=== PATIENT | female | born 1950 | race African-American/Black ===

== ENCOUNTER 2018-08-27 17:09 | Observation (INO) | payer OTHER ==
--- OUTSIDE RECORDS SUMMARY | 2018-08-27 17:11 | XMS REPORT ---
:1950 [facility] Team Providers Name Role Phone Marilin Randolph Provider Role Unavailable Allergies, Adverse Reactions, Alerts Substance Reaction Event Type MORPHINE Info Not Available Drug Allergy Lisinopril Info Not Available Drug Allergy Dilaudid Info Not Available Drug Allergy Problems Problem Type Condition Code Onset Dates Condition Status Problem Uncontrolled type 2 diabetes E11.65 Active mellitus without complication, without long-term current use of insulin Problem Hyperlipidemia, unspecified E78.5 Active hyperlipidemia type Problem Numbness R20.0 Active Problem Vitamin D deficiency E55.9 Active Problem Peripheral neuritis G62.9 Active Problem Abnormal CBC R79.89 Active Problem Low back pain M54.5 Active Problem Anemia, unspecified type D64.9 Active Problem Seasonal allergies J30.2 Active Problem Pain in unspecified hip M25.559 Active Assessment Hyperlipidemia, unspecified E78.5 Active hyperlipidemia type Assessment Uncontrolled type 2 diabetes E11.65 Active mellitus without complication, without long-term current use of insulin Assessment Chronic pain syndrome G89.4 Active Assessment Vitamin D deficiency E55.9 Active Problem Chronic pain syndrome G89.4 Active Assessment Abnormal CBC R79.89 Active Problem Muscle cramps R25.2 Active Assessment Hypertension, unspecified type I10 Active Problem Hypertension, unspecified type I10 Active Medications Medication Code Code Instructions Start End Status Dosage System Date Date Vitamin D [facility] 90040044851 2000 UNIT Active 2 tablets Orally Once (4,000 daily IU--OTC) Coreg ND 22032755077 25 mg Orally Nov 12, Active 1 tablet Twice daily 2017 Gabapentin ND 12777620540 300 MG Orally Active 1 capsule Twice a day before bedtime Amlodipine ND 29999076827 10 MG Orally b 16, Active 1 tablet Besylate Once a day 2017 Farxiga ND 00426497671 5mg Orally Once February 15May 16, Active 1 tablet in daily 2017 2017 morning for diabetes Lipitor ND 37783970961 20 mg Orally Oct 16, Active 1 tablet in Once daily 2018 evening Januvia [facility] 74058882307 100 mg Orally Nov 12, Active 1 tablet Once daily 2017 Metformin HCl [facility] 21867314300 1000 MG Orally Nov 12, Active 1 tablet Twice a day 2017 Victoza [facility] 05320669264 18 MG/3ML Active not defined Subcutaneous Meloxicam [facility] 76091149483 7.5 MG Orally Active 1 tablet Once a day Vitamin D3 [facility] 07914134704 5000 UNIT May 11, Active 1 capsule Orally Once a 2017 (otc) day Pennsaid [facility] 07021135157 2 % Transdermal Active 2 applications Twice a day to affected area Lisinopril [facility] 24284166193 20 MG Orally Active 1 tablet Once a day Results No Known Results Summary Purpose [employer]Clinical[employer] Submission
--- OUTSIDE RECORDS SUMMARY | 2018-08-27 17:12 | XMS REPORT ---
:1950 Author Organization eClinical[employer] Care Team Providers Name Role Phone Marilin Randolph Provider Role Unavailable Allergies No Known Allergies Problems Problem Type Condition Code Onset Dates [...] Problem Pain in unspecified hip M25.559 Active Problem Chronic pain syndrome G89.4 Active Problem Muscle cramps R25.2 Active Problem Hypertension, unspecified type I10 Active Medications No Known Medications Results No Known Results Summary Purpose [employer] Submission
--- OUTSIDE RECORDS SUMMARY | 2018-08-27 17:12 | XMS REPORT ---
[...] Medications Results No Known Results Summary Purpose [employer] Submission
--- OUTSIDE RECORDS SUMMARY | 2018-08-27 17:12 | XMS REPORT ---
[...] unspecified type I10 Active Medications Medication Code System Code Instructions Start End Date Status Dosage Date GlipiZIDE XL [facility] 11803313761 10 MG Orally May 16, Active 1 tablet Once a day (for 2018 diabetes) Results No Known Results Summary Purpose eClinicalWorks Submission
[2018-08-27 18:33] LABS: Absolute Lymphocytes (CBC) 1.5 K/uL (0.7-4.9); Absolute Monocytes 0.6 K/uL (0.1-1.3); Absolute Neutrophil 6.9 K/uL (1.8-8.0); Basophils % 0.6 % (0-1.3); Eosinophils % 2.1 % (0-4.4); Hematocrit 35.9 % (36.0-45.0); Lymphocytes % 15.8 % (15.3-44.8); MCV 79.3 fL (80-100); MPV 8.5 fL (7.6-11.3); Monocytes % 6.7 % (3.3-12.3); RBC Red Blood Cell Count 4.53 M/uL (3.86-4.86)
[2018-08-27 18:41] LABS: Protime INR 1.19
[2018-08-27 18:58] LABS: BUN Blood Urea Nitrogen 10 mg/dL (7-18); Bicarbonate 31 mmol/L (21-32); Glucose Level 88 mg/dL (74-106); NT PRO-BNP 454 pg/mL (<125); Potassium 3.9 mmol/L (3.5-5.1); Sodium Level 141 mmol/L (136-145); Troponin (Emerg Dept Use Only) < 0.02 ng/mL (0.0-0.045)
[2018-08-27 19:18] LABS: Urine Blood TRACE (NEG); Urine Glucose NEGATIVE (NEG); Urine Protein NEGATIVE (NEG); Urine pH 7.5 (5.0-7.0)
--- NOTE | 2018-08-27 19:53 | RAD REPORT ---
EXAM DESCRIPTION: RAD - Chest Single View - 08/27/2018 7:46 pm CLINICAL HISTORY: DYSPNEA Chest pain. COMPARISON: Chest Pa And Lat (2 Views) dated 08/25/2018; Chest Pa And Lat (2 Views) dated 06/01/2017; CHEST PA AND LAT 2 VIEW dated 09/05/2012 FINDINGS: Portable technique limits examination quality. The lungs are grossly clear. The heart is normal in size. No displaced fractures. IMPRESSION: No acute intrathoracic process suspected.
[2018-08-27] MEDS ORDERED: FENTANYL CITR 100 MCG/2 ML ONE (20:11)
--- NOTE | 2018-08-27 20:20 | ER ---
Nurse's Notes [facility] Name: Vesta Méndez Age: 67 yrs Sex: Female : 1950 Arrival Date: 08/27/2018 Time: 17:12 Bed 23 Private MD: Marilin Randolph Diagnosis: Unspecified atrial flutter-new onset;Chest pain, unspecified;Dyspnea, unspecified Presentation: 08/27 17:19 Presenting complaint: Patient states: Reports being treated by for asthma, sg Shortness of breath for about 4 weeks now, medication changes but no relief to the Shortness of breath that worsens with walking, started on a water pill as well for what he thought was swelling in my legs, reports feeling febrile. Transition of care: patient was not received from another setting of care. Onset of symptoms was August 27, 2018. Risk Assessment: Do you want to hurt yourself or someone else? Patient reports no desire to harm self or others. Initial Sepsis Screen: Does the patient meet any 2 criteria? RR > 20 per min. HR > 90 bpm. Does the patient have a suspected source of infection? No. Patient's initial sepsis screen is negative. Care prior to arrival: None. 17:19 Method Of Arrival: Ambulatory sg 17:19 Acuity: ARACELI 3 sg Triage Assessment: 18:26 General: Appears in no apparent distress. comfortable, well groomed, well developed, kr2 well nourished, Behavior is calm, cooperative, appropriate for age. Respiratory: Onset: The symptoms/episode began/occurred gradually, the patient has mild shortness of breath. Respiratory: Airway is patent Respiratory effort is even, unlabored, Respiratory pattern is regular, symmetrical, Breath sounds are clear bilaterally. Historical: - Allergies: 17:22 Morphine; sg 23:13 Dilaudid; kr2 - PMHx: 17:22 Hypertension; Diabetes - NIDDM; Asthma; sg - Immunization history:: Adult Immunizations up to date. - Social history:: Smoking status: Patient/guardian denies using tobacco. - Ebola Screening: : Patient negative for fever greater than or equal to 101.5 degrees Fahrenheit, and additional compatible Ebola Virus Disease symptoms Patient denies exposure to infectious person Patient denies travel to an Ebola-affected area in the 21 days before illness onset No symptoms or risks identified at this time. Screenin:00 Abuse screen: Denies threats or abuse. Denies injuries from another. Nutritional kr2 screening: No deficits noted. Tuberculosis screening: No symptoms or risk factors identified. Fall Risk None identified. Assessment: 18:00 General: Appears in no apparent distress. comfortable, well groomed, well developed, kr2 well nourished, Behavior is calm, cooperative, appropriate for age. Pain: Complains of pain in chest Pain does not radiate. Pain currently is 3 out of 10 on a pain scale. Quality of pain is described as pressure, sharp, Is continuous, Alleviated by rest, Aggravated by increased activity. Neuro: Level of Consciousness is awake, alert, obeys commands, Oriented to person, place, time, situation, Appropriate for age. Cardiovascular: Capillary refill < 3 seconds in bilateral fingers Patient's skin is warm and dry. Rhythm is atrial fibrillation. Respiratory: Reports shortness of breath on exertion cough that is Airway is patent Respiratory effort is even, unlabored, Respiratory pattern is regular, symmetrical, Breath sounds are clear bilaterally. GI: Abdomen is non-distended, obese. : Urine is clear. EENT: Oral mucosa is moist. Derm: Skin is intact, is healthy with good turgor, Skin is pink, warm \T\ dry. Musculoskeletal: Circulation, motion, and sensation intact. 19:00 Reassessment: Patient appears in no apparent distress at this time. Patient and/or kr2 family updated on plan of care and expected duration. Pain level reassessed. Patient is alert, oriented x 3, equal unlabored respirations, skin warm/dry/pink. 20:32 Reassessment: Patient appears in no apparent distress at this time. Patient and/or kr2 family updated on plan of care and expected duration. Pain level reassessed. Patient is alert, oriented x 3, equal unlabored respirations, skin warm/dry/pink. Patient denies pain at this time. Patient states feeling better. 21:30 Reassessment: Patient appears in no apparent distress at this time. Patient and/or kr2 family updated on plan of care and expected duration. Pain level reassessed. Patient is alert, oriented x 3, equal unlabored respirations, skin warm/dry/pink. Patient denies pain at this time. Patient states feeling better. 22:30 Reassessment: Patient appears in no apparent distress at this time. Patient and/or kr2 family updated on plan of care and expected duration. Pain level reassessed. Patient is alert, oriented x 3, equal unlabored respirations, skin warm/dry/pink. Patient denies pain at this time. Patient states feeling better. 23:14 Reassessment: Patient appears in no apparent distress at this time. Patient and/or kr2 family updated on plan of care and expected duration. Pain level reassessed. Patient is alert, oriented x 3, equal unlabored respirations, skin warm/dry/pink. Patient denies pain at this time. Patient states feeling better. Vital Signs: 17:20 BP 154 / 90; Pulse 106; Resp 21; Temp 98.1; Pulse Ox 97% on R/A; Pain 0/10; sg 18:25 BP 127 / 63; Pulse 83; Resp 17; Pulse Ox 97% on R/A; kr2 19:30 BP 110 / 76; Pulse 80; Resp 18; Pulse Ox 99% on R/A; kr2 20:31 BP 123 / 89; Pulse 72; Resp 18; Pulse Ox 99% on R/A; kr2 22:30 BP 128 / 88; Pulse 74; Resp 16; Pulse Ox 99% on R/A; kr2 ED Course: 17:12 Patient arrived in ED. sb2 17:12 Marilin Randolph MD is Private Physician. sb2 17:19 Arm band placed on. sg 17:20 Triage completed. sg 17:23 Geri Love FNP-C is [facility]. kb 17:23 Ernie Marinelli MD is Attending Physician. kb 17:40 Patient has correct armband on for positive identification. Placed in gown. Bed in low kr2 position. Call light in reach. Side rails up X 1. Adult w/ patient. cardiac monitor technician on. Pulse ox on. NIBP on. Door closed. Pillow given. Head of bed elevated. 18:00 EKG done, by ED staff, reviewed by Geri HOLT. Inserted saline lock: 20 kr2 gauge in right antecubital area, using aseptic technique. Blood collected. 18:22 Mable Beltran RN is Primary Nurse. kr2 19:42 X-ray completed. Portable x-ray completed in exam room. Patient tolerated procedure tm4 well. 20:19 Jennifer Ott MD is Hospitalizing Provider. kb 23:13 No provider procedures requiring assistance completed. Patient admitted, IV remains in kr2 place. Administered Medications: 20:06 Drug: fentaNYL (PF) 25 mcg Route: IVP; Site: right antecubital; jl3 20:32 Follow up: Response: No adverse reaction; Pain is decreased kr2 Outcome: 20:20 Decision to Hospitalize by Provider. kb 23:13 Admitted to Tele accompanied by nurse, family with patient, via wheelchair, room 430, kr2 with chart, Report called to FRANCK Rothman 23:13 Condition: stable 23:13 Instructed on the need for admit, Demonstrated understanding of instructions. 23:15 Patient left the ED. kr2 Signatures: Geri Love, BELL MAKER-C BELL MAKER-Ckb Surinder Bartlett, RN RN Iliana Moura 4 Rigoberto Ferraro RN RN jl3 Mable Beltran RN RN kr2 Tori Lancaster 2
--- NOTE | 2018-08-27 20:21 | EDPHYS ---
Physician Documentation [facility] Name: Vesta Méndez Age: 67 yrs Sex: Female : 1950 Arrival Date: 08/27/2018 Time: 17:12 Bed 23 Private MD: Marilin Randolph ED Physician Ernie Marinelli HPI: 08/27 18:03 This 67 yrs old Black Female presents to ER via Ambulatory with complaints of Shortness kb Of Breath. 18:03 The patient has shortness of breath at rest, and the patient has a history of asthma. kb Onset: The symptoms/episode began/occurred 4 week(s) ago. Duration: The symptoms are continuous, and are unchanged since they started. The patient's shortness of breath has no apparent modifying factors. Associated signs and symptoms: Pertinent positives: sinus congestion. Severity of symptoms: At their worst the symptoms were moderate in the emergency department the symptoms have improved mildly. The patient has not experienced similar symptoms in the past. The patient has not recently seen a physician. 18:04 Pt reports shortness of breath and "I just don't feel good" for 4 weeks. States she saw kb Dr Jones last week and was given new medication but it's not helping. Had CXR on (results reviewed - normal). States she has felt better over the last 3 days, but still not feeling good. "I need yall to do a work up on me to figure out what's going on.". Historical: - Allergies: 17:22 Morphine; sg 23:13 Dilaudid; kr2 - PMHx: 17:22 Hypertension; Diabetes - NIDDM; Asthma; sg - Immunization history:: Adult Immunizations up to date. - Social history:: Smoking status: Patient/guardian denies using tobacco. - Ebola Screening: : Patient negative for fever greater than or equal to 101.5 degrees Fahrenheit, and additional compatible Ebola Virus Disease symptoms Patient denies exposure to infectious person Patient denies travel to an Ebola-affected area in the 21 days before illness onset No symptoms or risks identified at this time. ROS: 18:06 ENT: Negative for injury, pain, and discharge, Neck: Negative for injury, pain, and kb swelling, Cardiovascular: Negative for chest pain, palpitations, and edema, Abdomen/GI: Negative for abdominal pain, nausea, vomiting, diarrhea, and constipation, Back: Negative for injury and pain, : Negative for injury, bleeding, discharge, and swelling, MS/Extremity: Negative for injury and deformity, Skin: Negative for injury, rash, and discoloration, Neuro: Negative for headache, weakness, numbness, tingling, and seizure. 18:06 Constitutional: Positive for malaise. 18:06 Respiratory: Positive for shortness of breath, Negative for cough, dyspnea on exertion, hemoptysis, orthopnea, pleurisy, sputum production, wheezing. Exam: 18:06 Constitutional: This is a well developed, well nourished patient who is awake, alert, kb and in no acute distress. Head/Face: Normocephalic, atraumatic. ENT: Nares patent. No nasal discharge, no septal abnormalities noted. Tympanic membranes are normal and external auditory canals are clear. Oropharynx with no redness, swelling, or masses, exudates, or evidence of obstruction, uvula midline. Mucous membranes moist. Neck: Trachea midline, no thyromegaly or masses palpated, and no cervical lymphadenopathy. Supple, full range of motion without nuchal rigidity, or vertebral point tenderness. No Meningismus. Chest/axilla: Normal chest wall appearance and motion. Nontender with no deformity. No lesions are appreciated. Cardiovascular: Regular rate and rhythm with a normal S1 and S2. No gallops, murmurs, or rubs. Normal PMI, no JVD. No pulse deficits. Respiratory: Lungs have equal breath sounds bilaterally, clear to auscultation and percussion. No rales, rhonchi or wheezes noted. No increased work of breathing, no retractions or nasal flaring. Abdomen/GI: Soft, non-tender, with normal bowel sounds. No distension or tympany. No guarding or rebound. No evidence of tenderness throughout. Skin: Warm, dry with normal turgor. Normal color with no rashes, no lesions, and no evidence of cellulitis. MS/ Extremity: Pulses equal, no cyanosis. Neurovascular intact. Full, normal range of motion. Neuro: Awake and alert, GCS 15, oriented to person, place, time, and situation. Cranial nerves II-XII grossly intact. Motor strength 5/5 in all extremities. Sensory grossly intact. Cerebellar exam normal. Normal gait. Vital Signs: 17:20 BP 154 / 90; Pulse 106; Resp 21; Temp 98.1; Pulse Ox 97% on R/A; Pain 0/10; sg 18:25 BP 127 / 63; Pulse 83; Resp 17; Pulse Ox 97% on R/A; kr2 19:30 BP 110 / 76; Pulse 80; Resp 18; Pulse Ox 99% on R/A; kr2 20:31 BP 123 / 89; Pulse 72; Resp 18; Pulse Ox 99% on R/A; kr2 22:30 BP 128 / 88; Pulse 74; Resp 16; Pulse Ox 99% on R/A; kr2 MDM: 17:24 Patient medically screened. kb 18:07 Data reviewed: vital signs, nurses notes. Data interpreted: Pulse oximetry: on room air kb is 97 %. Interpretation: normal. 20:02 Counseling: I had a detailed discussion with the patient and/or guardian regarding: the kb historical points, exam findings, and any diagnostic results supporting the discharge/admit diagnosis, lab results, radiology results, the need for further work-up and treatment in the hospital. 20:19 Physician consultation: Jennifer Ott MD was contacted at 20:19, regarding admission, kb to the telemetry unit. patient's condition, and will see patient shortly. 08/27 17:25 Order name: Basic Metabolic Panel kb 08/27 17:25 Order name: CBC with Diff kb 08/27 17:25 Order name: Magnesium kb 08/27 17:25 Order name: NT PRO-BNP kb 08/27 17:25 Order name: PT-INR kb 08/27 17:25 Order name: Troponin (emerg Dept Use Only) kb 08/27 17:26 Order name: Flu kb 08/27 18:29 Order name: Urine Dipstick--Ancillary (enter results) bd 08/27 18:37 Order name: CBC with Automated Diff; Complete Time: 18:37 EDMS 08/27 18:42 Order name: Protime (+INR); Complete Time: 18:50 EDMS 08/27 18:58 Order name: Basic Metabolic Panel; Complete Time: 18:59 EDMS 08/27 18:58 Order name: Troponin (Emerg Dept Use Only); Complete Time: 18:59 EDMS 08/27 18:58 Order name: NT PRO-BNP; Complete Time: 18:59 EDMS 08/27 18:58 Order name: Magnesium; Complete Time: 18:59 EDMS 08/27 17:25 Order name: XRAY Chest (1 view) kb 08/27 17:25 Order name: EKG; Complete Time: 18:57 kb 08/27 17:25 Order name: Cardiac monitoring; Complete Time: 18:07 kb 08/27 17:25 Order name: EKG - Nurse/Tech; Complete Time: 18:07 kb 08/27 17:25 Order name: IV Saline Lock; Complete Time: 18:07 kb 08/27 17:25 Order name: Labs collected and sent; Complete Time: 18:07 kb 08/27 17:25 Order name: O2 Per Protocol; Complete Time: 18:07 kb 08/27 17:25 Order name: O2 Sat Monitoring; Complete Time: 18:07 kb 08/27 19:45 Order name: Urine Dipstick-Ancillary; Complete Time: 19:46 EDMS 08/27 19:45 Order name: Influenza Screen (A EDMS 08/27 19:46 Order name: Influenza Screen (A ; Complete Time: 19:46 EDMS 08/27 19:54 Order name: RAD; Complete Time: 19:57 EDMS Administered Medications: 20:06 Drug: fentaNYL (PF) 25 mcg Route: IVP; Site: right antecubital; jl3 20:32 Follow up: Response: No adverse reaction; Pain is decreased kr2 Disposition: 08/27/18 20:20 Hospitalization ordered by Jennifer Ott for Inpatient Admission. Preliminary diagnosis are Unspecified atrial flutter - new onset, Chest pain, unspecified, Dyspnea, unspecified. - Bed requested for Telemetry/MedSurg (Inpatient). - Status is Inpatient Admission. kr2 - Condition is Stable. - Problem is new. - Symptoms are unchanged. UTI on Admission? No Addendum: 08/29/2018 07:13 Co-signature as Attending Physician, Ernie Marinelli MD I agree with the assessment and c marshall plan of care. Signatures: Dispatcher [employer] [facility] Geri Love, NIGEL-Papito MANNING-Surinder Cerda RN Ernie Han MD MD cha Chretien, Felicia RN Rigoberto Azar RN RN jl3 Ruby, Mable, RN RN kr2 Corrections: (The following items were deleted from the chart) 08/27 18:06 18:03 Severity of symptoms: At their worst the symptoms were moderate in the emergency kb department the symptoms are unchanged 21:19 20:20 Hospitalization Ordered by Jennifer Ott MD for Inpatient Admission. Preliminary fc diagnosis is Unspecified atrial flutter - new onset; Chest pain, unspecified; Dyspnea, unspecified. Bed requested for Telemetry/MedSurg (Inpatient). Status is Inpatient Admission. Condition is Stable. Problem is new. Symptoms are unchanged. UTI on Admission? No. kb 23:15 21:19 08/27/2018 20:20 Hospitalization Ordered by Jennifer Ott MD for Inpatient kr2 Admission. Preliminary diagnosis is Unspecified atrial flutter - new onset; Chest pain, unspecified; Dyspnea, unspecified. Bed requested for Telemetry/MedSurg (Inpatient). Status is Inpatient Admission. Condition is Stable. Problem is new. Symptoms are unchanged. UTI on Admission? No. fc
[2018-08-27] MEDS ORDERED: MORPHINE 2 MG/ML SYR IV PRN (21:20)
[2018-08-27] MEDS ORDERED: ONDANSETRON 4 MG/2 ML VIAL IV PRN (21:20)
[2018-08-27] MEDS ORDERED: ACETAMINOPHEN 500 MG TAB PO PRN (21:20)
[2018-08-27] MEDS ORDERED: HYDROMORPHONE HCL 1 MG/ML INJ IV PRN (21:58)
[2018-08-27] MEDS ORDERED: NA CHLORIDE 0.9% 1,000 ML IV SCH (22:00)
[2018-08-27 23:27] VITALS: O2SAT 99
[2018-08-28 00:14] VITALS: BMI 50.5
[2018-08-28] MEDS ORDERED: ALBUTEROL INHALER 60 PUFF/8 GM IH SCH (02:00)
[2018-08-28 05:48] LABS: Absolute Lymphocytes (CBC) 1.8 K/uL (0.7-4.9); Absolute Monocytes 0.7 K/uL (0.1-1.3); Absolute Neutrophil 5.8 K/uL (1.8-8.0); Basophils % 0.3 % (0-1.3); Eosinophils % 2.3 % (0-4.4); Hematocrit 33.1 % (36.0-45.0); Lymphocytes % 20.7 % (15.3-44.8); MCV 78.9 fL (80-100); MPV 8.3 fL (7.6-11.3); Monocytes % 8.3 % (3.3-12.3); RBC Red Blood Cell Count 4.19 M/uL (3.86-4.86)
[2018-08-28 06:03] LABS: Albumin 3.3 g/dL (3.4-5.0); Bilirubin Total 0.7 mg/dL (0.2-1.0); Potassium 3.9 mmol/L (3.5-5.1); Protein, Total 7.2 g/dL (6.4-8.2)
--- NOTE | 2018-08-28 06:16 | EKG ---
Test Date: 2018-08-27 Test Time: 18:01:18 Manager Application Development: KEN MEASUREMENT RESULTS: Intervals: Rate: 83 ID: QRSD: [id number] QT: 368 QTc: 432 Tichnor: P: ID: QRS: [id number] T: 235 INTERPRETIVE STATEMENTS: Atrial fibrillation T wave abnormality, consider anterior ischemia Abnormal ECG Compared to ECG 11/09/2003 07:04:00 Possible ischemia now present Sinus rhythm no longer present T-wave abnormality still present Electronically Signed On 08-28-18 06:16:[address] Greco
[2018-08-28] MEDS ORDERED: PRO AIR IH SCH (08:00)
[2018-08-28] MEDS ORDERED: GLUCAGON 1 MG/VIAL IM PRN (08:09)
[2018-08-28] MEDS ORDERED: D50W 25 GM/50 ML SYRINGE IV PRN (08:09)
[2018-08-28] MEDS ORDERED: IPRATROPIUM BROM 0.5MG/2.5ML NEB PRN (08:15)
[2018-08-28] MEDS: HOME MED 1 EA UNK (Fluticasone/Umeclidin/Vilanter [Trelegy Ellipta 100-62.5-25] 1 PUFF) IH SCH (08:41)
[2018-08-28] MEDS: D3 PO SCH (08:41)
[2018-08-28] MEDS: COLLAGEN HYDROLY PO SCH (08:41)
[2018-08-28] MEDS: FOLIC ACID PO SCH (08:41)
[2018-08-28] MEDS: ATORVASTATIN 20 MG TAB PO SCH ×2 (09:00→14:27)
[2018-08-28] MEDS ORDERED: levETIRAcetam 500 MG TAB PO SCH (09:00)
[2018-08-28] MEDS: SITAGLIPTIN PHOS 100 MG TAB PO SCH ×2 (09:00→14:27)
[2018-08-28] MEDS ORDERED: GLIPIZIDE S.A. 5 MG TAB PO SCH (09:00)
[2018-08-28] MEDS ORDERED: ENOXAPARIN 100 MG/ML SYR SQ SCH (09:00)
[2018-08-28] MEDS ORDERED: SPIRONOLACTONE 25 MG TABLET PO SCH (09:00)
[2018-08-28] MEDS ORDERED: AMLODIPINE 10 MG TAB PO SCH (09:00)
[2018-08-28] MEDS ORDERED: GLIPIZIDE 10 MG PO SCH (09:00)
--- NOTE | 2018-08-28 09:03 | P.HP ---
Certification for Inpatient Patient admitted to: Inpatient With expected LOS: >2 Midnights Patient will require the following post-hospital care: None Practitioner: I am a practitioner with admitting privileges, knowledge of patient current condition, hospital course, and medical plan of care. Services: Services provided to patient in accordance with Admission requirements found in Title 42 Section 412.3 of the Code of Federal Regulations Patient History Date of Service: 08/27/18 Reason for admission: Shortness of breath/new onset atrial fibrillation History of Present Illness: patient is a 67-year-old female who came into the hospital with shortness of breath. Patient was a with recent history of difficulty breathing. She saw her siderographist and she was placed on a different inhaler. She also had a chest x-ray that did not reveal any abnormalities. Decision was made to have patient follow-up. However, since she was not getting any better she decided to come into the emergency room. In the emergency room she was found to have atrial fibrillation. This has never been noted in her history. She does admit to getting quite a bit of weight over the last few years since snf. She states this is because she had a back injury which required surgery. It left her with weakness in the right leg. She does not really exercise and she has gained a lot of weight. She was also diagnosed with obstructive sleep apnea and has a CPAP machine. However, she does use it. She will need further workup in the hospital. Allergies hydromorphone [From Dilaudid] Allergy (Verified 08/28/18 01:33) facial swelling morphine Allergy (Verified 02/21/15 12:50) Rash Home Medications: Albuterol Sulfate [Proair Hfa] 2 puff IH Q4H 08/27/18 Amlodipine [Norvasc*] 10 mg PO DAILY 08/27/18 Atorvastatin Calcium [Lipitor*] 20 mg PO DAILY 08/27/18 D3/Folic Acid/Collagen,Hydroly [Cyfolex Capsule] 1 cap PO DAILY 08/27/18 Fluticasone/Umeclidin/Vilanter [Trelegy Ellipta 100-62.5-25] 1 puff IH DAILY 10/14 Glipizide [Glipizide Xl] 10 mg PO DAILY 08/27/18 Sitagliptin Phosphate [Januvia*] 50 mg PO DAILY 12/01/18 Spironolactone [Aldactone*] 25 mg PO BID 08/27/18 - Past Medical/Surgical History Has patient received pneumonia vaccine in the past: Yes Diabetic: Yes -: HTN -: DM -: Asthma -: back surgery -: lap band -: hysterectomy -: Morbid obesity - Family History Father Medical History: Heart disease Mother Medical History: Heart disease, Hypertension, Kidney disease Notes: "mass in stomach" Brother Medical History: Diabetes - Social History Smoking Status: Never smoker Alcohol use: No CD- Drugs: No Caffeine use: Yes Place of Residence: Home Review of Systems 10-point ROS is otherwise unremarkable Physical Examination - Vital Signs Temperature: 97.8 F Blood Pressure: 97/53 Pulse: 70 Respirations: 20 Pulse Ox (%): 96 - Physical Exam General: Alert, In no apparent distress, Oriented x3 HEENT: Atraumatic, PERRLA, Mucous membr. moist/pink, EOMI, Sclerae nonicteric Neck: Supple, 2+ carotid pulse no bruit, No LAD, Without JVD or thyroid abnormality Respiratory: Clear to auscultation bilaterally, Normal air movement Cardiovascular: No murmurs, Irregular heart rate/rhythm Gastrointestinal: Normal bowel sounds, Soft and benign, Non-distended, No tenderness Musculoskeletal: No clubbing, No swelling, No tenderness Integumentary: No rashes Neurological: Normal gait, Normal speech, Normal strength at 5/5 x4 extr, Normal tone, Sensation intact, Cranial nerves 3-12 intact, Normal affect Lymphatics: No axilla or inguinal lymphadenopathy - Studies Laboratory Data (last 24 hrs) 08/27/18 17:55: PT 14.1 H, INR 1.19 08/27/18 17:55: WBC 9.2, Hgb 11.8 L, Hct 35.9 L, Plt Count 285 08/27/18 17:55: Sodium 141, Potassium 3.9, BUN 10, Creatinine 1.20, Glucose 88, Magnesium 2.0 08/27/18 17:25: PT Cancelled, INR Cancelled 08/27/18 17:25: WBC Cancelled, Hgb Cancelled, Hct Cancelled, Plt Count Cancelled 08/27/18 17:25: Sodium Cancelled, Potassium Cancelled, BUN Cancelled, Creatinine Cancelled, Glucose Cancelled, Magnesium Cancelled Microbiology Data (last 24 hrs): 08/27/18 18:18 Nasopharnyx Influenza Type A Antigen Screen - Final 08/27/18 18:18 Nasopharnyx Influenza Type B Antigen Screen - Final Assessment & Plan - Problems (Diagnosis) (1) Atrial fibrillation Current Visit: Yes Status: Acute (2) Dyspnea Current Visit: Yes Status: Acute (3) Morbid obesity with BMI of 50.0-59.9, adult Current Visit: Yes Status: Acute (4) JAYDA (obstructive sleep apnea) Current Visit: Yes Status: Acute - Plan Plan: 1. Monitor on telemetry 2. Anticoagulation 3. Antiarrhythmic per Cardiology 4. Monitor electrolytes 5. Check thyroid studies 6. GI and DVT prophylaxis Discharge Plan: Home Plan to discharge in: Greater than 2 days - Advance Directives Does patient have a Living Will: No Does patient have a Durable POA for Healthcare: No - Code Status/Comfort Care Code Status Assessed: Yes Code Status: Full Code Critical Care: No Time Spent Managing PTS Care (In Minutes): 50
[2018-08-28 09:12] LABS: Ferritin 91.8 ng/mL (8-388); Thyroid Stimulating Hormone 1.83 uIU/mL (0.360-3.740)
[2018-08-28] MEDS: AMLODIPINE 10 MG TAB PO SCH (09:35)
[2018-08-28] MEDS: ENOXAPARIN 100 MG/ML SYR SQ SCH ×2 (09:36→20:48)
[2018-08-28] MEDS ORDERED: NA CHLORIDE 0.9% 1,000 ML IV SCH (10:00)
[2018-08-28] MEDS: INSULIN -REGULAR HUMAN 50 UNIT/0.5 ML ML SQ SCH ×3 (11:30→20:49)
--- NOTE | 2018-08-28 15:37 | P.PN ---
Subjective Date of Service: 08/28/18 Primary Care Provider: Dr. Randolph; Pulmonary-Dr. Jones; Cardiology-Dr. Greco Chief Complaint: Shortness of breath/new onset atrial fibrillation Subjective: Improving Physical Examination - Vital Signs Temperature: 98 F Blood Pressure: 124/59 Pulse: 81 Respirations: 18 Pulse Ox (%): 93 - Physical Exam General: Alert, In no apparent distress, Oriented x3, Cooperative HEENT: Atraumatic Neck: Supple Respiratory: Clear to auscultation bilaterally, Normal air movement Cardiovascular: Irregular heart rate/rhythm (Atrial fibrillation, rate controlled) Gastrointestinal: Normal bowel sounds, Non-distended, No tenderness, No masses, No rebound, No guarding Musculoskeletal: No erythema, No tenderness, No warmth Integumentary: No tenderness/swelling, No erythema, No warmth, No cyanosis Neurological: Normal speech, Normal strength at 5/5 x4 extr, Normal tone, Normal affect - Studies Laboratory Data (last 24 hrs) 08/27/18 17:55: PT 14.1 H, INR 1.19 08/27/18 17:55: WBC 9.2, Hgb 11.8 L, Hct 35.9 L, Plt Count 285 08/27/18 17:55: Sodium 141, Potassium 3.9, BUN 10, Creatinine 1.20, Glucose 88, Magnesium 2.0 08/27/18 17:25: PT Cancelled, INR Cancelled 08/27/18 17:25: WBC Cancelled, Hgb Cancelled, Hct Cancelled, Plt Count Cancelled 08/27/18 17:25: Sodium Cancelled, Potassium Cancelled, BUN Cancelled, Creatinine Cancelled, Glucose Cancelled, Magnesium Cancelled Microbiology Data (last 24 hrs): 08/27/18 18:18 Nasopharnyx Influenza Type A Antigen Screen - Final 08/27/18 18:18 Nasopharnyx Influenza Type B Antigen Screen - Final Medications List Reviewed: Yes Assessment & Plan Discharge Plan: Home Plan to discharge in: 24 Hours Physician Review Additional Text: Impression: Dyspnea secondary to New onset atrial fibrillation, rate controlled Asthma Hypertension Diabetes mellitus type 2 Obstructive sleep apnea Hyperlipidemia Anemia, iron deficiency Obesity, BMI 50 Plan: Dyspnea secondary to New onset atrial fibrillation, rate controlled: Rate controlled. Await further recommendations from cardiology. Anticipate initiation of anti rhythm medication. Will start Lovenox for PE protocol. Cardiology recommends inpatient cardiac stress test and echocardiogram. Await final results. This will occur tomorrow. Patient may require chronic anti coagulation therapy along with medication. Anticipate possible discharge tomorrow. I will turn the service over to Dr. Padilla tomorrow. I will go over the plan of care with her. Asthma: Will continue with asthma medication. Will maintain sats above 90%. Hypertension: Will continue with medication. Will adjust appropriately. Diabetes mellitus type 2: Will provide sliding scale. Will monitor Accu-Cheks. Hyperlipidemia: Will continue with lipitor. Will check lipids. Obstructive sleep apnea: Recommend compliance with CPAP as an outpatient. Anemia, iron deficiency: Will start iron supplementation. Will monitor hemoglobin. Obesity, BMI 50: Lifestyle modification education will be provided. Time Spent Managing Pts Care (In Minutes): 55
--- NOTE | 2018-08-28 16:21 | CON ---
CARDIOLOGY CONSULT History Of Present Illness: Mrs. Méndez came to the hospital with a month long history of feeling fa tigued, tired, and out of breath. In the past, she has had normal cardiac workups. She came to the emergency room and was found to have atrial fibrillation. Since then, she has received beta blockers and is doing a lot better. Her initial heart rate was 83. Medications: Her outpatient medications have been Januvia, Trelegy Ellipta, glipizide, atorvastatin, amlodipine, albuterol, and spironolactone. Social History: She uses no illegal drugs. Rare alcohol. Uses no tobacco. Past Medical History: She has underlying diabetes and hypertension and has a working diagnosis of as thma. She also has morbid obesity. Allergies: SHE IS DRUG INTOLERANT TO HYDROMORPHONE AND MORPHINE. Physical Examination: General: She is 5 feet 7 inches, 323 pounds, obese, alert, oriented, pleasant, cooperative, not in d istress. Lungs: Clear. Heart: Irregularly irregular, but going just about 70 beats per minute. Abdomen: Soft. Extremities: Unremarkable. Impression And Plan: The patient has new-onset atrial fibrillation, probably rate control and antico agulation is the best thing, but we can initiate anticoagulation. An outpatient anticoagulant that w ould be doable for her is either Eliquis 5 b.i.d. or Xarelto 20 once a day, either 1 would be fine. She does not need anything to bring her rate down. Really we are not very sure whether she has coron alexa artery disease or not, so before we choose a drug to try and revert her to sinus rhythm, I will a sk her to do an echocardiogram and a stress test. Thank you very much for your kind referral of Mrs. Méndez. I will follow her with you. THERESE Voice ID: [id number] Report ID: [id number]
[2018-08-29 06:11] LABS: Absolute Lymphocytes (CBC) 1.5 K/uL (0.7-4.9); Absolute Monocytes 0.6 K/uL (0.1-1.3); Absolute Neutrophil 5.3 K/uL (1.8-8.0); Basophils % 0.7 % (0-1.3); Eosinophils % 1.9 % (0-4.4); Hematocrit 39.3 % (36.0-45.0); Lymphocytes % 19.7 % (15.3-44.8); MCH 25.9 pg (27.0-35.0); MCV 79.5 fL (80-100); MPV 8.4 fL (7.6-11.3); Monocytes % 7.6 % (3.3-12.3); RBC Red Blood Cell Count 4.94 M/uL (3.86-4.86)
[2018-08-29] MEDS ORDERED: PANTOPRAZOLE 40MG TABLET PO SCH (07:30)
[2018-08-29] MEDS: INSULIN -REGULAR HUMAN 50 UNIT/0.5 ML ML SQ SCH ×3 (07:30→16:30)
[2018-08-29] MEDS: COLLAGEN HYDROLY PO SCH (09:00)
[2018-08-29] MEDS: AMLODIPINE 10 MG TAB PO SCH (09:00)
[2018-08-29] MEDS: ENOXAPARIN 100 MG/ML SYR SQ SCH ×2 (09:00→18:44)
[2018-08-29] MEDS: FOLIC ACID PO SCH (09:00)
[2018-08-29] MEDS: HOME MED 1 EA UNK (Fluticasone/Umeclidin/Vilanter [Trelegy Ellipta 100-62.5-25] 1 PUFF) IH SCH (09:00)
[2018-08-29] MEDS: D3 PO SCH (09:00)
[2018-08-29] MEDS ORDERED: REGADENOSON 0.4 MG/5 ML SYR IV ONE (09:24)
--- NOTE | 2018-08-29 11:25 | ECHO ---
HEIGHT: 5 ft 7 in WEIGHT: 323 lb 3.2 oz DATE OF STUDY: 08/29/[address]: Lane Greco MD 2-DIMENSIONAL: YES M.MODE: YES DOPPLER: YES COLOR FLOW: YES TDS: NO PORTABLE: NO DEFINITY: NO BUBBLE STUDY: NO DIAGNOSIS: ATRIAL FIBRILLATION CARDIAC HISTORY: CATHERIZATION: SURGERY: PROSTHETIC VALVE: PACEMAKER: MEASUREMENTS (cm) DIASTOLIC (NORMALS) SYSTOLIC (NORMALS) IVSd 1.1 (0.6-1.2) LA Diam 3.7 (1.9-4.0) LVEF 58% LVIDd 4.9 (3.5-5.7) LVIDs 3.4 (2.0-3.5) %FS 31% LVPWd 1.2 (0.6-1.2) Ao Diam 2.6 (2.0-3.7) 2 DIMENSIONAL ASSESSMENT: RIGHT ATRIUM: NORMAL LEFT ATRIUM: NORMAL RIGHT VENTRICLE: NORMAL LEFT VENTRICLE: NORMAL TRICUSPID VALVE: NORMAL MITRAL VALVE: NORMAL PULMONIC VALVE: NORMAL AORTIC VALVE: NORMAL PERICARDIAL EFFUSION: NONE AORTIC ROOT: NORMAL LEFT VENTRICULAR WALL MOTION: NORMAL DOPPLER/COLOR FLOW: MILD TRICUSPID REGURGITATION. NORMAL RIGHT VENTRICULAR SYSTOLIC PRESSURE. COMMENTS: NORMAL 2D ECHOCARDIOGRAM. MILD TRICUSPID REGURGITATION. ATRIAL FIBRILLATION. HEART RATE 82 BEATS PER MINUTE. TECHNOLOGIST: Abdiel FUNK
[2018-08-29] MEDS: SITAGLIPTIN PHOS 100 MG TAB PO SCH (15:18)
[2018-08-29] MEDS: ATORVASTATIN 20 MG TAB PO SCH (15:19)
--- NOTE | 2018-08-29 15:23 | RAD REPORT ---
EXAM DESCRIPTION: NM - Rest Stress Cardiac Imaging - 08/29/2018 3:18 pm CLINICAL HISTORY: CP Chest pain. COMPARISON: No comparisons TECHNIQUE: The patient was administered approximately 10mCi of Tc 99m Sestamibi prior to resting SPE CT imaging of the heart. The patient was then administered approximately 30 mCi of Tc 99m Sestamibi f ollowing exercise or pharmacologic stress. Multiplanar SPECT images were reviewed. FINDINGS: No stress induced ischemic defect is seen to suggest stress induced ischemia. No fixed def ect is seen to suggest hibernating myocardium or scarred myocardium. The end diastolic volume is 111 ml, the end systolic volume is 48 ml, and the ejection fraction is 57 %. IMPRESSION: No stress induced ischemia.
--- NOTE | 2018-08-29 16:12 | TREADPHA ---
DX: ATRIAL FIBRILLATION Date of Study: 08/29/18 Ht: 5 7 Wt: 323 lb 3.2 oz Consulting Physician: PATRICK MEDICATIONS: TYLENOL, NORVASC, LIPITOR, LOVENOX, GLUCAGEN HISTORY: 67 YEAR OLD FEMALE WITH COMPLAINTS OF CHEST PAIN, DYSPNEA. HISTORY OF HYPERTENSION, DIABETES, NON INSULIN DEPENDENT DIABETES MELLITUS, ASTHMA, NON SMOKER. PHYSICIAL EXAMINATION: RESTING B.P.: 132/81 RESTING H.R.: 96 RESTING EKG: ATIRAL FIBRILLATION/ NON SPECIFIC T WAVE ABNORMALITY. PROTOCOL: LEXISCAN EXERCISE TIME: 3:30 B.P. AT PEAK STRESS: 124/70 IMPRESSION: LEXISCAN INJECTED PER PROTOCOL, FOLLOWED BY CARDIOLITE PER PROTOCOL, SEE NUCLEAR MEDICINE REPORT. NO SUPRA VENTRICULAR TACHYCARDIA. NO VENTRICULAR TACHYCARDIA. NO PREMATURE ATRIAL COMPLEXES. 2 PREMATURE VENTRICULAR COMPLEXES NOTED. DURING RECOVERY 2 PREMATURE VENTRICULAR COMPLEXES. PATIENT REPORTED CHEST PAIN 2/10 PRIOR TO TEST, 8/10 DURING TEST, 3/10 POST STRESS TEST RECOVERY. NON DIAGNOSTIC EKG WITH LEXISCAN STRESS TEST.
[2018-08-29 16:33] VITALS: BP 129/79; TEMP 98.1
--- NOTE | 2018-08-29 17:53 | P.DS ---
Admission Date: 08/27/18 Discharge Date: 08/29/18 Primary Care Provider: Dr. Randolph; Pulmonary-Dr. Jones; Cardiology-Dr. Greco Disposition: ROUTINE DISCHARGE Discharge Condition: GOOD Reason for Admission: Shortness of breath/new onset atrial fibrillation Consultations: Cardiology - Problems (1) Atrial fibrillation Onset Date: 08/29/18 Current Visit: Yes Status: Acute Qualifiers: Atrial fibrillation type: persistent Qualified Code(s): I48.1 - Persistent atrial fibrillation (2) Dyspnea Onset Date: 08/29/18 Current Visit: Yes Status: Acute Qualifiers: Dyspnea type: shortness of breath Qualified Code(s): R06.02 - Shortness of breath; R06.00 - Dyspnea, unspecified; R06.01 - Orthopnea (3) Morbid obesity with BMI of 50.0-59.9, adult Onset Date: 08/29/18 Current Visit: Yes Status: Chronic (4) JAYDA (obstructive sleep apnea) Onset Date: 08/29/18 Current Visit: Yes Status: Chronic Brief History of Present Illness: patient is a 67-year-old female who came into the hospital with shortness of breath. Patient was a with recent history of difficulty breathing. She saw her choir singer and she was placed on a different inhaler. She also had a chest x-ray that did not reveal any abnormalities. Decision was made to have patient follow-up. However, since she was not getting any better she decided to come into the emergency room. In the emergency room she was found to have atrial fibrillation. This has never been noted in her history. She does admit to getting quite a bit of weight over the last few years since fci. She states this is because she had a back injury which required surgery. It left her with weakness in the right leg. She does not really exercise and she has gained a lot of weight. She was also diagnosed with obstructive sleep apnea and has a CPAP machine. However, she does use it. She will need further workup in the hospital. Hospital Course: Overall during the hospital stay patient remained stable. Patient was initially admitted to the hospital for atrial fibrillation and chest pain and dyspnea. Cardiology was consulted who recommended patient be struck it on anti coagulation along with stress test and echocardiogram to be done here in the hospital. Patient has stress test and echocardiogram done here in the hospital which were both within normal limits. Per cardiology patient will be needing a cardioversion to be done after properly anticoagulant. Currently patient does not need any rate control medication due to heart rate being in the lower 70s. Patient was educated regarding the disease process along with the plan and agreed with the plan and thus was discharged home under stable condition. Patient was asked to follow up with cardiology in about 1-2 days post discharge. Patient was given a prescription for Eliquis to be taken 5 mg daily patient will be scheduled for cardioversion outpatient once discharged her from the hospital. Vital Signs/Physical Exam: Temp Pulse Resp BP Pulse Ox 98.1 F 94 H 20 129/79 96 08/29/18 16:00 08/29/18 16:00 08/29/18 16:00 08/29/18 16:00 08/29/18 16:00 General: Alert, In no apparent distress HEENT: Atraumatic, PERRLA, EOMI Neck: Supple, JVD not distended Respiratory: Clear to auscultation bilaterally, Normal air movement Cardiovascular: Regular rate/rhythm, Normal S1 S2 Gastrointestinal: Normal bowel sounds, No tenderness Musculoskeletal: No tenderness Integumentary: No rashes Neurological: Normal speech, Normal tone, Normal affect Lymphatics: No axilla or inguinal lymphadenopathy Laboratory Data at Discharge: WBC 7.6 K/uL (4.3-10.9) 08/29/18 05:43 Hgb 12.8 g/dL (12.0-15.0) 08/29/18 05:43 Hct 39.3 % (36.0-45.0) D 08/29/18 05:43 Plt Count 300 K/uL (152-406) D 08/29/18 05:43 PT 14.1 SECONDS (9.5-12.5) H 08/27/18 17:55 INR 1.19 08/27/18 17:55 Sodium 140 mmol/L (136-145) 08/29/18 05:43 Potassium 4.0 mmol/L (3.5-5.1) 08/29/18 05:43 BUN 9 mg/dL (7-18) 08/29/18 05:43 Creatinine 1.10 mg/dL (0.55-1.3) 08/29/18 05:43 Glucose 129 mg/dL (74-106) H 08/29/18 05:43 Magnesium 2.0 mg/dL (1.8-2.4) 08/29/18 05:43 Total Bilirubin 0.7 mg/dL (0.2-1.0) 08/28/18 05:01 AST 14 U/L (15-37) L 08/28/18 05:01 ALT 18 U/L (12-78) 08/28/18 05:01 Alkaline Phosphatase 97 U/L (45-117) 08/28/18 05:01 Home Medications: Albuterol Sulfate [Proair Hfa] 2 puff IH Q4H 08/27/18 Amlodipine [Norvasc*] 10 mg PO DAILY 08/27/18 Atorvastatin Calcium [Lipitor*] 20 mg PO DAILY 08/27/18 D3/Folic Acid/Collagen,Hydroly [Cyfolex Capsule] 1 cap PO DAILY 08/27/18 Fluticasone/Umeclidin/Vilanter [Trelegy Ellipta 100-62.5-25] 1 puff IH DAILY 10/14 Glipizide [Glipizide Xl] 10 mg PO DAILY 08/27/18 Sitagliptin Phosphate [Januvia*] 50 mg PO DAILY 08/27/18 Spironolactone [Aldactone*] 25 mg PO BID 08/27/18 Apixaban [Eliquis] 5 mg PO BID #60 tablet 08/29/18 New Medications: Apixaban [Eliquis] 5 mg PO BID #60 tablet Diet: Regular Activity: Ad armin Followup: Lane Greco MD [ACTIVE - CAN ADMIT] - 1 Week
== END 2018-08-29 19:00 | disposition home or self-care (01) ==
LOC: ER 17:09 → INTOOBSV 20:21 → ERHOLD 20:21 → 4TH 22:53
PROVIDERS: ADMIT Hospitalist; ATTEND Hospitalist
DX: I48.1 Persistent atrial fibrillation (principal); E66.01 Morbid (severe) obesity due to excess calories; Z68.43 Body mass index [BMI] 50.0-59.9, adult; G47.33 Obstructive sleep apnea (adult) (pediatric); E11.9 Type 2 diabetes mellitus without complications; I10 Essential (primary) hypertension; D50.9 Iron deficiency anemia, unspecified; J45.909 Unspecified asthma, uncomplicated; Z98.84 Bariatric surgery status
CPT/HCPCS: 36415 ×2; 71045; 78452; 80048 ×2; 80053; 81003; 82607; 82728; 82962 ×7; 83540; 83735 ×2; 83880; 84439; 84443; 84466; 84484; 85025 ×3; 85610; 87804 ×2; 93005; 93017; 93306; 96374; 99285; A9500; G0378 ×2; J1650 ×3; J2785; J3010; J7030

== ENCOUNTER 2018-10-07 08:45 | Inpatient (IN) | payer OTHER ==
--- OUTSIDE RECORDS SUMMARY | 2018-10-07 11:27 | XMS REPORT ---
[...] End Date Status Dosage Date GlipiZIDE XL [facility] 12802925950 10 MG Orally May 16, Active 1 tablet Once a day (for 2018 diabetes) Results No Known Results Summary Purpose [employer] Submission
--- OUTSIDE RECORDS SUMMARY | 2018-10-07 11:27 | XMS REPORT ---
[...] Medications Results No Known Results Summary Purpose [employer] Submission
--- OUTSIDE RECORDS SUMMARY | 2018-10-07 11:27 | XMS REPORT ---
:1950 Author Organization [employer] Care Team Providers Name Role Phone Marilin [...] Status Dosage System Date Date Vitamin D [facility] 71468789545 2000 UNIT Active 2 tablets Orally Once (4,000 daily IU--OTC) Coreg ND 08210530461 25 mg Orally Nov 12, Active 1 tablet Twice daily 2017 Gabapentin ND 60876215039 300 MG Orally Active 1 capsule Twice a day before bedtime Amlodipine ND 67181496801 10 MG Orally b 16, Active 1 tablet Besylate Once a day 2017 Farxiga ND 45630916928 5mg Orally Once February 15May 16, Active 1 tablet in daily 2017 2017 morning for diabetes Lipitor ND 45659302380 20 mg Orally Oct 16, Active 1 tablet in Once daily 2018 evening Januvia [facility] 45462579324 100 mg Orally Nov 12, Active 1 tablet Once daily 2017 Metformin HCl [facility] 33595016127 1000 MG Orally Nov 12, Active 1 tablet Twice a day 2017 Victoza [facility] 60214333144 18 MG/3ML Active not defined Subcutaneous Meloxicam [facility] 39645300087 7.5 MG Orally Active 1 tablet Once a day Vitamin D3 [facility] 09228255277 5000 UNIT May 11, Active 1 capsule Orally Once a 2017 (otc) day Pennsaid [facility] 22356769301 2 % Transdermal Active 2 applications Twice a day to affected area Lisinopril [facility] 78031394617 20 MG Orally Active 1 tablet Once a day Results No Known Results Summary Purpose [employer]Works Submission
[2018-10-07 12:06] VITALS: BMI 49.0
[2018-10-07 12:33] LABS: Absolute Lymphocytes (CBC) 1.9 K/uL (0.7-4.9); Absolute Monocytes 0.7 K/uL (0.1-1.3); Absolute Neutrophil 6.8 K/uL (1.8-8.0); Basophils % 0.4 % (0-1.3); Eosinophils % 1.5 % (0-4.4); Hematocrit 41.4 % (36.0-45.0); Lymphocytes % 19.5 % (15.3-44.8); MPV 8.2 fL (7.6-11.3); Monocytes % 7.1 % (3.3-12.3)
[2018-10-07 12:46] LABS: Potassium 3.9 mmol/L (3.5-5.1)
[2018-10-07 12:47] LABS: Urine Appearance CLOUDY; Urine Bilirubin NEGATIVE (NEG); Urine Blood NEGATIVE (NEG); Urine Color YELLOW; Urine Glucose NEGATIVE (NEG); Urine Protein NEGATIVE (NEG); Urine Specific Gravity 1.025 (1.005-1.030); Urine pH 5.5 (5.0-7.0)
[2018-10-07] MEDS: PNEUMOCOCCAL VACCINE 0.5 ML IMVAC ONE (13:00)
[2018-10-07 13:01] LABS: Urine Microscopic Reflex ORDER UMIC
[2018-10-07 13:33] LABS: Urine Bacteria >50 /HPF (<20); Urine Culture Reflex Order REFLEXED; Urine RBC <5 /HPF (NONE SEEN)
[2018-10-07] MEDS ORDERED: ACETAMINOPHEN 500 MG TAB PO PRN (14:41)
--- NOTE | 2018-10-07 16:01 | EKG ---
Test Date: 2018-10-07 Test Time: 13:51:34 Label Press Operator: ANTONIO MEASUREMENT RESULTS: Intervals: Rate: 71 AR: QRSD: 78 QT: 378 QTc: 410 [place]: P: AR: QRS: 21 T: -29 INTERPRETIVE STATEMENTS: Atrial fibrillation Nonspecific T wave abnormality, probably digitalis effect Abnormal ECG Compared to ECG 08/27/2018 18:01:18 Possible ischemia no longer present T-wave abnormality still present Electronically Signed On 10-07-18 16:00:[address] Greco
[2018-10-07] MEDS: ATORVASTATIN 20 MG TAB PO SCH (16:41)
[2018-10-07] MEDS: SOTALOL HCL 80 MG TAB PO SCH (20:37)
[2018-10-07] MEDS: APIXABAN 5 MG TABLET PO SCH (20:37)
--- NOTE | 2018-10-08 01:59 | HP ---
Date of Admission: 10/07/2018 History Of Present Illness: Ms. Méndez feels fine. She was admitted to the hospital electively to [facility] initiation of antiarrhythmic drug therapy. In August of this year, she was found to have at rial fibrillation. This has continued, and she has been anticoagulated all time, and we decided then that if she was still in atrial fibrillation, we would place her in the hospital, initiate drug ther apy with Betapace, and then if that did not work, give her a cardioversion. She has shortness of angelia ath with exertion. She has had a recent nuclear stress test that is normal. An echocardiogram that reveals no significant abnormality, has mild tricuspid regurgitation. Past Medical History: Ms. Méndez has a past history of diabetes, dyslipidemia, hypertension, and a [facility] recent history of atrial fibrillation. Allergies: SHE REPORTS ALLERGIES TO HYDROMORPHONE, MORPHINE, AND LISINOPRIL. Medications: Outpatient medications have been cholecalciferol, glipizide, atorvastatin, sitagliptin, amlodipine, spironolactone, carvedilol, and Eliquis 5 mg b.i.d. Physical Examination: General: She is 5 feet 7 inches, 313 pounds. Alert, oriented, pleasant, not in distress. Vital Signs: The nurses have not measured her blood pressure. It was within normal limits on my las t office visit note a few days ago. Lungs: Clear. Heart: Irregularly irregular, otherwise it is normal. Abdomen: Soft. Extremities: Normal. I will ask her to get an EKG today, be started on Betapace 80 mg twice a day. We will stop the Coreg . Continue the Eliquis, and on Wednesday, 2 days from now, if she is still in AFib, we will do a cardio version. MARIANA/WILLIE Voice ID: [id number]
[2018-10-08] MEDS: glipiZIDE 5 MG TAB PO SCH (05:41)
[2018-10-08] MEDS: APIXABAN 5 MG TABLET PO SCH ×2 (08:51→20:58)
[2018-10-08] MEDS: SOTALOL HCL 80 MG TAB PO SCH ×2 (08:51→20:58)
[2018-10-08] MEDS: SPIRONOLACTONE 25 MG TABLET PO SCH (08:51)
[2018-10-08] MEDS: AMLODIPINE 10 MG TAB PO SCH (08:53)
[2018-10-08] MEDS: SITAGLIPTIN PHOS 100 MG TAB PO SCH (08:53)
--- NOTE | 2018-10-08 09:47 | PN ---
Ms. Méndez remains in atrial fibrillation. We will try a cardioversion tomorrow. She is still in at rial fibrillation. We will keep her n.p.o. She has urine that shows white blood cells and nitrite a nd bacteria, so we will see what the culture shows. I suspect it is a dirty catch, and she will need antibiotics. We will pay attention to the urine culture that is pending at this point. We will jesse p her n.p.o. after midnight and ask her to sign a consent form. THERESE Voice ID: [id number] Report ID: [id number]
[2018-10-08] MEDS: ATORVASTATIN 20 MG TAB PO SCH (16:53)
[2018-10-09 04:19] VITALS: O2SAT 97
[2018-10-09] MEDS: glipiZIDE 5 MG TAB PO SCH (05:40)
[2018-10-09] MEDS: AMLODIPINE 10 MG TAB PO SCH (09:00)
[2018-10-09] MEDS: SPIRONOLACTONE 25 MG TABLET PO SCH (09:00)
[2018-10-09] MEDS: SITAGLIPTIN PHOS 100 MG TAB PO SCH (09:00)
[2018-10-09] MEDS: SOTALOL HCL 80 MG TAB PO SCH (10:02)
[2018-10-09] MEDS: APIXABAN 5 MG TABLET PO SCH (10:03)
[2018-10-09 11:02] VITALS: TEMP 97
[2018-10-09] MEDS ORDERED: FLUMAZENIL 0.1 MG/ML (5 mL VIAL) IV ONE (11:08)
[2018-10-09] MEDS ORDERED: MIDAZOLAM HCL 2 MG/2 ML INJ ONE ×2 (11:08→11:35)
[2018-10-09 13:25] VITALS: BP 97/62
[2018-10-09] MEDS: PNEUMOCOCCAL VACCINE 0.5 ML IMVAC ONE (15:19)
--- NOTE | 2018-10-09 23:43 | OP ---
Surgeon: Lane Greco MD Procedure: Mrs. Méndez had a cardioversion. Indication: Atrial fibrillation, persistent. Procedure In Detail: The patient was fasting. She had been on sotalol 80 b.i.d. for 3 doses. She h ad been on Eliquis 5 b.i.d. for more than a month. She was brought to the ICU in a fasting state, se dated with Versed, 10 mg was used, titrated to an adequate level of sedation. She was shocked with 2 00 joules, it was unsuccessful. 300 joules was successful at establishing sinus rhythm, and the plan is to let her awaken, eat breakfast, and be discharged home later today. She will have a new prescr iption for Betapace 80 mg twice a day. She will continue her outpatient medications of Eliquis, amlo dipine, Lipitor, glipizide, Januvia, spironolactone, and Advair Diskus. MARIANA/WILLIE Voice ID: [id number] Report ID: [id number]
--- NOTE | 2018-10-10 12:00 | EKG ---
Test Date: 2018-10-09 Test Time: 11:38:44 Spinner Operator: YAMEL MEASUREMENT RESULTS: Intervals: Rate: 57 MS: 168 QRSD: 78 QT: 446 QTc: 434 [place]: P: 49 MS: 168 QRS: -2 T: -35 INTERPRETIVE STATEMENTS: Sinus bradycardia T wave abnormality, non specific Abnormal ECG Compared to ECG 10/07/2018 13:51:34 Atrial fibrillation no longer present T-wave abnormality still present Electronically Signed On 10-10-18 12:00:[address] Greco
--- NOTE | 2018-10-10 21:55 | DS ---
Date of Discharge: 10/09/2018 Discharge Diagnosis: Atrial fibrillation, resolved. History Of Present Illness: Mrs. Méndez first developed atrial fibrillation in early August. We p laced her on Xarelto and beta-blockers and suggested that if she remained in atrial fibrillation, we would admit her to the hospital to initiate antiarrhythmic drug therapy. She failed to revert to sin us rhythm so on the she was admitted. Hospital Course: She was loaded with Betapace and the present dose is 80 b.i.d. with good blood pres sure and heart rate control. She failed to revert chemically so we brought her to the ICU to do a ca rdioversion that was successful and she left the hospital in sinus rhythm. Her medications to take a t home will be glipizide 10 mg daily, atorvastatin 20 mg daily, Januvia 100 mg daily, amlodipine 10 m g daily, spironolactone 25 mg daily, Betapace 80 mg twice a day, and Eliquis 5 mg b.i.d. She will john l my office tomorrow to make a followup appointment 2 or 3 weeks from now. Hospital course was uncom plicated. She left the hospital in sinus rhythm after being loaded with Betapace and cardioverted patrick ccessfully. MARIANA/WILLIE Voice ID: [id number] Report ID: [id number]
== END 2018-10-09 13:35 | disposition home or self-care (01) | DRG 310 ==
LOC: 2ND 11:24 → 3RD-ICU 10-09 10:47
PROVIDERS: ADMIT Internal Medicine; ATTEND Internal Medicine
PROC: 5A2204Z Restoration of Cardiac Rhythm, Single (ICD-10-PCS; principal; 2018-10-09)
DX: I48.1 Persistent atrial fibrillation (principal); E11.9 Type 2 diabetes mellitus without complications; E78.5 Hyperlipidemia, unspecified; I10 Essential (primary) hypertension; Z79.01 Long term (current) use of anticoagulants
CPT/HCPCS: 36415; 80048; 81003; 81015; 82962; 85025; 87077; 87086; 87088; 87186; 93005; J2250

== ENCOUNTER 2018-10-15 17:18 | Observation (INO) | payer OTHER ==
--- OUTSIDE RECORDS SUMMARY | 2018-10-15 17:20 | XMS REPORT ---
:1950 [facility] Providers Name Role [...] Status Dosage System Date Date Vitamin D [facility] 66022682883 2000 UNIT Active 2 tablets Orally Once (4,000 daily IU--OTC) Coreg ND 00451266851 25 mg Orally Nov 12, Active 1 tablet Twice daily 2017 Gabapentin ND 74260272227 300 MG Orally Active 1 capsule Twice a day before bedtime Amlodipine ND 63917099349 10 MG Orally b 16, Active 1 tablet Besylate Once a day 2017 Farxiga ND 26703129837 5mg Orally Once February 15May 16, Active 1 tablet in daily 2017 2017 morning for diabetes Lipitor ND 28137806758 20 mg Orally Oct 16, Active 1 tablet in Once daily [address] [facility] 71722850725 100 mg Orally Nov 12, Active 1 tablet Once daily [address] [facility] 83012360219 1000 MG Orally Nov 12, Active 1 tablet Twice a day [address] [facility] 04489964663 18 MG/3ML Active not defined Subcutaneous Meloxicam [facility] 16377848058 7.5 MG Orally Active 1 tablet Once a day Vitamin D3 [facility] 70454374964 5000 UNIT May 11, Active 1 capsule Orally Once a 2017 (otc) day Pennsaid [facility] 54314564552 2 % Transdermal Active 2 applications Twice a day to affected area Lisinopril [facility] 89644425450 20 MG Orally Active 1 tablet Once a day Results No Known Results Summary Purpose [employer] Submission
--- OUTSIDE RECORDS SUMMARY | 2018-10-15 17:20 | XMS REPORT ---
[...] End Date Status Dosage Date GlipiZIDE XL [facility] 18062132925 10 MG Orally May 16, Active 1 tablet Once a day (for 2018 diabetes) Results No Known Results Summary Purpose [employer] Submission
--- OUTSIDE RECORDS SUMMARY | 2018-10-15 17:20 | XMS REPORT ---
[...] Medications Results No Known Results Summary Purpose [employer] Submission
[2018-10-15 17:49] LABS: Absolute Lymphocytes (CBC) 1.5 K/uL (0.7-4.9); Absolute Monocytes 0.6 K/uL (0.1-1.3); Absolute Neutrophil 4.3 K/uL (1.8-8.0); Basophils % 0.9 % (0-1.3); Eosinophils % 2.5 % (0-4.4); Hematocrit 41.6 % (36.0-45.0); Lymphocytes % 22.7 % (15.3-44.8); MPV 8.4 fL (7.6-11.3); Monocytes % 9.6 % (3.3-12.3); RBC Red Blood Cell Count 5.21 M/uL (3.86-4.86)
[2018-10-15] MEDS ORDERED: NA CHLORIDE 0.9% 1,000 ML ONE (17:49)
[2018-10-15 17:53] LABS: Protime INR 1.74
[2018-10-15 18:11] LABS: ALT/SGPT 33 U/L (12-78); AST/SGOT 22 U/L (15-37); Albumin 3.8 g/dL (3.4-5.0); Alkaline Phosphatase 135 U/L (45-117); BUN Blood Urea Nitrogen 15 mg/dL (7-18); Bicarbonate 29 mmol/L (21-32); Bilirubin Direct < 0.1 mg/dL (0-0.2); Bilirubin Total 0.3 mg/dL (0.2-1.0); Glucose Level 85 mg/dL (74-106); Lipase 94 U/L (73-393); Magnesium 2.1 mg/dL (1.8-2.4); NT PRO-BNP 62 pg/mL (<125); Potassium 4.8 mmol/L (3.5-5.1); Protein, Total 8.9 g/dL (6.4-8.2); Sodium Level 137 mmol/L (136-145); Troponin (Emerg Dept Use Only) < 0.02 ng/mL (0.0-0.045)
[2018-10-15 19:37] LABS: Urine Blood TRACE (NEG); Urine Glucose NEGATIVE (NEG); Urine Protein NEGATIVE (NEG)
--- NOTE | 2018-10-15 19:44 | ER ---
Nurse's Notes [facility] Name: Vesta Méndez Age: 67 yrs Sex: Female : 1950 Arrival Date: 10/15/2018 Time: 17:19 Bed 24 Private MD: Diagnosis: Essential (primary) hypertension;Chest pain, unspecified;Type 2 diabetes mellitus Presentation: 10/15 17:20 Presenting complaint: Patient states: I was in the hospital for a fib, on Wednesday they la1 cardioverted me and got me back to normal and sent me home, for the last hour I have just felt really bad and my BP was high at home. Pt reports some discomfort in her chest as well. Transition of care: patient was not received from another setting of care. Onset of symptoms was October 15, 2018. Risk Assessment: Do you want to hurt yourself or someone else? Patient reports no desire to harm self or others. Initial Sepsis Screen: Does the patient meet any 2 criteria? No. Patient's initial sepsis screen is negative. Does the patient have a suspected source of infection? No. Patient's initial sepsis screen is negative. Care prior to arrival: None. 17:20 Method Of Arrival: Wheelchair la1 17:20 Acuity: ARACELI 3 la1 Historical: - Allergies: 17:22 Dilaudid; la1 17:22 Morphine; la1 17:22 Lisinopril; la1 - Home Meds: 19:02 amlodipine oral [Active]; Metformin Oral [Active]; atorvastatin oral oral [Active]; tl3 19:05 Lisinopril Oral [Active]; Spironolacton-Hydrochlorothiaz Oral [Active]; Glipizide Oral tl3 [Active]; sitagliptin oral oral [Active]; apixaban oral oral [Active]; cholecalciferol (vitamin D3) oral oral [Active]; Sotalol Oral [Active]; Bactrim DS 800-160 mg Oral tab [Active]; - PMHx: 17:22 Asthma; Diabetes - NIDDM; Hypertension; la1 - Immunization history:: Adult Immunizations up to date. - Social history:: Smoking status: Patient/guardian denies using tobacco. - Ebola Screening: : No symptoms or risks identified at this time. - Family history:: not pertinent. Screenin:26 Abuse screen: Denies threats or abuse. Nutritional screening: No deficits noted. tl3 Tuberculosis screening: No symptoms or risk factors identified. Fall Risk None identified. Assessment: 17:26 Reassessment: pt was discharged from hospital on Wednesday was converted from A fib, just tl3 started feeling bad about an our [employer], checked blood pressure at home and both numbers were in the triple digits, BGL was 107. General: Appears uncomfortable, well groomed, well developed, well nourished, Behavior is anxious. Pain: Denies pain. Neuro: Level of Consciousness is awake, alert, obeys commands, Oriented to person, place, time, situation, Appropriate for age. Cardiovascular: Patient's skin is warm and dry. Respiratory: Airway is patent Respiratory effort is even, unlabored, Respiratory pattern is regular, symmetrical. GI: No signs and/or symptoms were reported involving the gastrointestinal system. : No signs and/or symptoms were reported regarding the genitourinary system. Derm: No signs and/or symptoms reported regarding the dermatologic system. Musculoskeletal: No signs and/or symptoms reported regarding the musculoskeletal system. 19:00 Reassessment: repeat troponin drawn and sent to lab. tl3 21:17 Reassessment: No changes from previously documented assessment. Patient and/or family tl3 updated on plan of care and expected duration. Pain level reassessed. Patient is alert, oriented x 3, equal unlabored respirations, skin warm/dry/pink. report called to FRANCK Kerr. Vital Signs: 17:22 BP 157 / 88; Pulse 74; Resp 18; Temp 98.8(TE); Pulse Ox 98% on R/A; Weight 140.61 kg; la1 Height 5 ft. 7 in. (170.18 cm); 21:19 BP 127 / 67; Pulse 67; Resp 18; Pulse Ox 100% ; tl3 21:19 BP 115 / 74; Pulse 54; Resp 16; Pulse Ox 97% ; tl3 17:22 Body Mass Index 48.55 (140.61 kg, 170.18 cm) la1 ED Course: 17:19 Patient arrived in ED. rg4 17:22 Triage completed. la1 17:22 Arm band placed on right wrist. la1 17:23 Lana Brennan RN is Primary Nurse. tl3 17:24 Ernie Marinelli MD is Attending Physician. [facility] 17:26 Patient has correct armband on for positive identification. Placed in gown. Bed in low tl3 position. Call light in reach. Side rails up X2. Adult w/ patient. school bus monitor on. Pulse ox on. NIBP on. Warm blanket given. 17:26 No provider procedures requiring assistance completed. Initial lab(s) drawn, by nm, tl3 sent to lab. EKG done, by ED staff, reviewed by Ernie Marinelli MD. Inserted saline lock: 20 gauge in right antecubital area, using aseptic technique. Blood collected. 17:59 Pillow given. mg2 18:04 X-ray(s) taken. tl3 18:15 XRAY Chest (1 view) In Process Unspecified. EDMS 19:39 Jennifer Ott MD is Hospitalizing Provider. [facility] 21:19 Patient admitted, IV remains in place. tl3 Administered Medications: 17:42 Drug: NS 0.9% 1000 ml Route: IV; Rate: 125 ml/hr; Site: right antecubital; mg2 21:20 Follow up: IV Status: Infusion continued upon admission tl3 17:47 Drug: NS 0.9% 500 ml Route: IV; Rate: bolus; Site: right antecubital; mg2 21:20 Follow up: IV Status: Completed infusion; IV Intake: 500ml tl3 Intake: 21:20 IV: 500ml; Total: 500ml. tl3 Outcome: 19:42 Decision to Hospitalize by Provider. [facility] 21:19 Admitted to Tele accompanied by tech, via wheelchair, with chart, Report called to trish3 FRANCK Kerr 21:19 Condition: stable 21:19 Instructed on the need for admit, Demonstrated understanding of instructions. 21:44 Patient left the ED. tl3 Signatures: Dispatcher [employer] EDDE Ernie Marinelli MD MD cha Attema, Lee, RN RN Jeniffer Hadley4 Lana Brennan RN RN tl3 Milan Yang RN RN mg2
--- NOTE | 2018-10-15 19:44 | EDPHYS ---
Physician Documentation [facility] Name: Vesta Méndez Age: 67 yrs Sex: Female : 1950 Arrival Date: 10/15/2018 Time: 17:19 Bed 24 Private MD: ED Physician Ernie Marinelli HPI: 10/15 17:46 This 67 yrs old Black Female presents to ER via Wheelchair with complaints of High julia Blood Pressure. 17:46 The patient has elevated blood pressure and discovered this at home. Onset: The julia symptoms/episode began/occurred just prior to arrival. Modifying factors: The symptoms are aggravated by activity, The symptoms are alleviated by remaining still. Associated signs and symptoms: Pertinent positives: dizziness, lightheadedness, nausea. Severity of symptoms: At its worst the blood pressure was mild, in the emergency department the blood pressure is unchanged. The patient has not experienced similar symptoms in the past. Historical: - Allergies: 17:22 Dilaudid; la1 17:22 Morphine; la1 17:22 Lisinopril; la1 - Home Meds: 19:02 amlodipine oral [Active]; Metformin Oral [Active]; atorvastatin oral oral [Active]; tl3 19:05 Lisinopril Oral [Active]; Spironolacton-Hydrochlorothiaz Oral [Active]; Glipizide Oral tl3 [Active]; sitagliptin oral oral [Active]; apixaban oral oral [Active]; cholecalciferol (vitamin D3) oral oral [Active]; Sotalol Oral [Active]; Bactrim DS 800-160 mg Oral tab [Active]; - PMHx: 17:22 Asthma; Diabetes - NIDDM; Hypertension; la1 - Immunization history:: Adult Immunizations up to date. - Social history:: Smoking status: Patient/guardian denies using tobacco. - Ebola Screening: : No symptoms or risks identified at this time. - Family history:: not pertinent. ROS: 17:46 Constitutional: Negative for fever, chills, and weight loss, Eyes: Negative for injury, julia pain, redness, and discharge, ENT: Negative for injury, pain, and discharge, Neck: Negative for injury, pain, and swelling, Cardiovascular: Negative for chest pain, palpitations, and edema, Respiratory: Negative for shortness of breath, cough, wheezing, and pleuritic chest pain, Abdomen/GI: Negative for abdominal pain, nausea, vomiting, diarrhea, and constipation, Back: Negative for injury and pain, : Negative for injury, bleeding, discharge, and swelling, MS/Extremity: Negative for injury and deformity, Skin: Negative for injury, rash, and discoloration, Psych: Negative for depression, anxiety, suicide ideation, homicidal ideation, and hallucinations, Allergy/Immunology: Negative for hives, rash, and allergies, Endocrine: Negative for neck swelling, polydipsia, polyuria, polyphagia, and marked weight changes, Hematologic/Lymphatic: Negative for swollen nodes, abnormal bleeding, and unusual bruising. 17:46 Abdomen/GI: Positive for nausea. 17:46 Neuro: Positive for dizziness. Exam: 17:46 Constitutional: This is a well developed, well nourished patient who is awake, alert, julia and in no acute distress. Head/Face: Normocephalic, atraumatic. Eyes: Pupils equal round and reactive to light, extra-ocular motions intact. Lids and lashes normal. Conjunctiva and sclera are non-icteric and not injected. Cornea within normal limits. Periorbital areas with no swelling, redness, or edema. ENT: Nares patent. No nasal discharge, no septal abnormalities noted. Tympanic membranes are normal and external auditory canals are clear. Oropharynx with no redness, swelling, or masses, exudates, or evidence of obstruction, uvula midline. Mucous membranes moist. Neck: Trachea midline, no thyromegaly or masses palpated, and no cervical lymphadenopathy. Supple, full range of motion without nuchal rigidity, or vertebral point tenderness. No Meningismus. Chest/axilla: Normal chest wall appearance and motion. Nontender with no deformity. No lesions are appreciated. Cardiovascular: Regular rate and rhythm with a normal S1 and S2. No gallops, murmurs, or rubs. Normal PMI, no JVD. No pulse deficits. Respiratory: Lungs have equal breath sounds bilaterally, clear to auscultation and percussion. No rales, rhonchi or wheezes noted. No increased work of breathing, no retractions or nasal flaring. Abdomen/GI: Soft, non-tender, with normal bowel sounds. No distension or tympany. No guarding or rebound. No evidence of tenderness throughout. Back: No spinal tenderness. No costovertebral tenderness. Full range of motion. Skin: Warm, dry with normal turgor. Normal color with no rashes, no lesions, and no evidence of cellulitis. MS/ Extremity: Pulses equal, no cyanosis. Neurovascular intact. Full, normal range of motion. Neuro: Awake and alert, GCS 15, oriented to person, place, time, and situation. Cranial nerves II-XII grossly intact. Motor strength 5/5 in all extremities. Sensory grossly intact. Cerebellar exam normal. Normal gait. Psych: Awake, alert, with orientation to person, place and time. Behavior, mood, and affect are within normal limits. Vital Signs: 17:22 BP 157 / 88; Pulse 74; Resp 18; Temp 98.8(TE); Pulse Ox 98% on R/A; Weight 140.61 kg; la1 Height 5 ft. 7 in. (170.18 cm); 21:19 BP 127 / 67; Pulse 67; Resp 18; Pulse Ox 100% ; tl3 21:19 BP 115 / 74; Pulse 54; Resp 16; Pulse Ox 97% ; tl3 17:22 Body Mass Index 48.55 (140.61 kg, 170.18 cm) la1 MDM: 17:24 Patient medically screened. julia 17:24 Patient medically screened. julia 17:24 Patient medically screened. julia 17:49 Data reviewed: vital signs, nurses notes, lab test result(s), EKG, radiologic studies, julia plain films. 10/15 17:33 Order name: Basic Metabolic Panel; Complete Time: 18:34 [facility] 10/15 17:33 Order name: CBC with Diff; Complete Time: 18:34 [facility] 10/15 17:33 Order name: LFT's; Complete Time: 18:34 [facility] 10/15 17:33 Order name: Magnesium; Complete Time: 18:34 [facility] 10/15 17:33 Order name: NT PRO-BNP; Complete Time: 18:34 [facility] 10/15 17:33 Order name: PT-INR; Complete Time: 18:34 [facility] 10/15 17:33 Order name: Troponin (emerg Dept Use Only); Complete Time: 18:34 [facility] 10/15 17:33 Order name: Lipase; Complete Time: 18:34 [facility] 10/15 17:33 Order name: Urine Culture [facility] 10/15 18:38 Order name: Troponin (emerg Dept Use Only); Complete Time: 19:38 [facility] 10/15 19:06 Order name: Ckmb; Complete Time: 19:38 [facility] 10/15 19:06 Order name: CK; Complete Time: 19:38 [facility] 10/15 19:08 Order name: Urine Dipstick--Ancillary (enter results); Complete Time: 19:38 gm 10/15 19:08 Order name: Urine --Ancillary (enter results); Complete Time: 19:38 gm 10/15 17:33 Order name: XRAY Chest (1 view) [facility] 10/15 17:33 Order name: EKG; Complete Time: 17:35 [facility] 10/15 21:18 Order name: Basic Metabolic Panel [facility] 10/15 21:18 Order name: Basic Metabolic Panel [facility] 10/15 21:18 Order name: Lipid Profile [facility] 10/15 21:18 Order name: Lipid Profile [facility] 10/15 21:18 Order name: Troponin I [facility] 10/15 21:18 Order name: Troponin I [facility] 10/15 21:18 Order name: Troponin I [facility] 10/15 21:19 Order name: CONS Physician Consult [facility] 10/15 21:19 Order name: Heart Healthy [facility] 10/15 21:19 Order name: Echo with Doppler [facility] 10/15 21:20 Order name: CBC with Automated Diff [facility] 10/15 21:20 Order name: CBC with Automated Diff [facility] 10/15 17:33 Order name: Cardiac monitoring; Complete Time: 17:38 [facility] 10/15 17:33 Order name: EKG - Nurse/Tech; Complete Time: 17:37 [facility] 10/15 17:33 Order name: IV Saline Lock; Complete Time: 17:38 [facility] 10/15 17:33 Order name: Labs collected and sent; Complete Time: 17:38 [facility] 10/15 17:33 Order name: O2 Per Protocol; Complete Time: 17:38 [facility] 10/15 17:33 Order name: O2 Sat Monitoring; Complete Time: 17:38 [facility] 10/15 21:19 Order name: EKG Electrocardiogram [facility] 10/15 21:19 Order name: EKG Electrocardiogram [facility] Administered Medications: 17:42 Drug: NS 0.9% 1000 ml Route: IV; Rate: 125 ml/hr; Site: right antecubital; mg2 21:20 Follow up: IV Status: Infusion continued upon admission tl3 17:47 Drug: NS 0.9% 500 ml Route: IV; Rate: bolus; Site: right antecubital; mg2 21:20 Follow up: IV Status: Completed infusion; IV Intake: 500ml tl3 Disposition: 10/15/18 19:42 Hospitalization ordered by Jennifer Ott for Observation. Preliminary diagnosis are Essential (primary) hypertension, Chest pain, unspecified, Type 2 diabetes mellitus. - Bed requested for Telemetry/MedSurg (observation). - Status is Observation. tl3 - Condition is Fair. - Problem is new. - Symptoms have improved. UTI on Admission? No Signatures: Dispatcher [employer] EDMS Kaley Escoto RN RN mw Ernie Marinelli MD MD cha Attema, Lee RN RN la1 Lana Brennan RN RN tl3 Milan Yang RN RN mg2 Corrections: (The following items were deleted from the chart) 21:05 19:42 Hospitalization Ordered by Jennifer Ott MD for Observation. Preliminary diagnosis is Essential (primary) hypertension; Chest pain, unspecified; Type 2 diabetes mellitus. Bed requested for Telemetry/MedSurg (observation). Status is Observation. Condition is Fair. Problem is new. Symptoms have improved. UTI on Admission? No. [facility] 21:44 21:05 10/15/2018 19:42 Hospitalization Ordered by Jennifer Ott MD for Observation. tl3 Preliminary diagnosis is Essential (primary) hypertension; Chest pain, unspecified; Type 2 diabetes mellitus. Bed requested for Telemetry/MedSurg (observation). Status is Observation. Condition is Fair. Problem is new. Symptoms have improved. UTI on Admission? No. mw
--- NOTE | 2018-10-15 19:55 | RAD REPORT ---
EXAM DESCRIPTION: Benita Single View10/15/2018 6:14 pm CLINICAL HISTORY: Cough COMPARISON: August 2018 FINDINGS: The lungs appear clear of acute infiltrate. The heart is mildly enlarged IMPRESSION: No acute abnormalities displayed
[2018-10-15] MEDS ORDERED: ACETAMINOPHEN 500 MG TAB PO PRN (21:14)
[2018-10-15] MEDS ORDERED: MORPHINE 4 MG/ML SYR IV PRN (21:14)
[2018-10-15] MEDS ORDERED: ALPRAZOLAM 0.25 MG TABLET PO PRN (21:14)
[2018-10-15 22:30] VITALS: BMI 48.3
[2018-10-15] MEDS: SOTALOL HCL 80 MG TAB PO SCH (22:42)
[2018-10-16 05:55] VITALS: BP 128/65; TEMP 97.3
[2018-10-16 06:09] LABS: Absolute Lymphocytes (CBC) 2.1 K/uL (0.7-4.9); Absolute Monocytes 0.7 K/uL (0.1-1.3); Absolute Neutrophil 5.6 K/uL (1.8-8.0); Basophils % 0.5 % (0-1.3); Eosinophils % 1.9 % (0-4.4); Hematocrit 39.9 % (36.0-45.0); Lymphocytes % 23.9 % (15.3-44.8); MPV 8.5 fL (7.6-11.3); Monocytes % 8.5 % (3.3-12.3); RBC Red Blood Cell Count 4.91 M/uL (3.86-4.86)
[2018-10-16 06:24] LABS: Potassium 4.4 mmol/L (3.5-5.1)
--- NOTE | 2018-10-16 07:16 | P.HP ---
Certification for Inpatient Patient admitted to: Observation With expected LOS: <2 Midnights Patient will require the following post-hospital care: None Practitioner: I am a practitioner with admitting privileges, knowledge of patient current condition, hospital course, and medical plan of care. Services: Services provided to patient in accordance with Admission requirements found in Title 42 Section 412.3 of the Code of Federal Regulations Patient History Date of Service: 10/15/18 Reason for admission: Chest pain rule out acute coronary syndrome History of Present Illness: Patient is a 67-year-old female who is been in and out of the hospital over the last couple months on 3 different occasions. She has had extensive cardiac workup done as well. She was also found have atrial fibrillation with rapid ventricular response a week ago. She was cardioverted and has been in a sinus rhythm since then. She was on sotalol as well as Eliquis but the Eliquis was changed to Xarelto because she stated that she thought her tongue was swelling. Otherwise, patient has been doing well. Last night she noticed her blood pressure was significantly elevated. She decided to come into the hospital for further evaluation. In the emergency room her blood pressure was elevated at 160/80. She states that it was much higher at home around 180/100. She came into the hospital to be evaluated. She was also diagnosed with a urinary tract infection recently and she is on Bactrim. Allergies hydromorphone [From Dilaudid] Allergy (Verified 08/28/18 01:33) facial swelling morphine Allergy (Verified 02/21/15 12:50) Rash lisinopril Adverse Reaction (Verified 10/07/18 11:48) Hives Home Medications: Amlodipine [Norvasc*] 10 mg PO DAILY 10/16/18 Atorvastatin Calcium [Lipitor*] 20 mg PO DAILY 10/16/18 Cholecalciferol (Vitamin D3) [Vitamin D3] 5,000 unit PO DAILY 10/16/18 Glipizide [Glipizide Xl] 10 mg PO DAILY 10/16/18 Rivaroxaban [Xarelto*] 20 mg PO DAILY 10/16/18 Sitagliptin Phosphate [Januvia*] 100 mg PO DAILY 10/16/18 Sotalol HCl [Betapace*] 80 mg PO BID 10/16/18 Spironolactone [Aldactone*] 25 mg PO DAILY 10/16/18 Sulfamethoxazole/Trimethoprim [Sulfamethoxazole-Tmp Ds Tablet] 1 tab PO Q12H - Past Medical/Surgical History Has patient received pneumonia vaccine in the past: Yes Diabetic: Yes -: HTN -: DM -: Asthma -: obesity -: back surgery -: lap band -: hysterectomy -: Morbid obesity - Family History Father Medical History: Heart disease Mother Medical History: Heart disease, Hypertension, Kidney disease Notes: "mass in stomach" Brother Medical History: Diabetes - Social History Smoking Status: Never smoker Alcohol use: No CD- Drugs: No Caffeine use: Yes Place of Residence: Home Review of Systems 10-point ROS is otherwise unremarkable Physical Examination - Vital Signs Temperature: 97.3 F Blood Pressure: 128/65 Pulse: 49 Respirations: 16 Pulse Ox (%): 99 - Physical Exam General: Alert, In no apparent distress, Oriented x3 HEENT: Atraumatic, PERRLA, Mucous membr. moist/pink, EOMI, Sclerae nonicteric Neck: Supple, 2+ carotid pulse no bruit, No LAD, Without JVD or thyroid abnormality Respiratory: Clear to auscultation bilaterally, Normal air movement Cardiovascular: Regular rate/rhythm, Normal S1 S2, No murmurs Gastrointestinal: Normal bowel sounds, Soft and benign, Non-distended, No tenderness Musculoskeletal: No clubbing, No swelling, No tenderness Integumentary: No rashes Neurological: Normal gait, Normal speech, Normal strength at 5/5 x4 extr, Normal tone, Sensation intact, Cranial nerves 3-12 intact, Normal affect Lymphatics: No axilla or inguinal lymphadenopathy - Studies Laboratory Data (last 24 hrs) 10/15/18 17:40: PT 20.6 H, INR 1.74 10/15/18 17:40: WBC 6.7 D, Hgb 13.3, Hct 41.6, Plt Count 331 10/15/18 17:40: Sodium 137, Potassium 4.8, BUN 15, Creatinine 1.31 H, Glucose 85 , Magnesium 2.1, Total Bilirubin 0.3, AST 22, ALT 33, Alkaline Phosphatase 135 H , Lipase 94 Assessment & Plan - Problems (Diagnosis) (1) Chest pain, rule out acute myocardial infarction Current Visit: Yes Status: Acute (2) Atrial fibrillation Onset Date: 08/29/18 Current Visit: No Status: Acute Qualifiers: (3) Dyspnea Onset Date: 08/29/18 Current Visit: No Status: Acute Qualifiers: (4) Morbid obesity with BMI of 50.0-59.9, adult Onset Date: 08/29/18 Current Visit: No Status: Chronic (5) JAYDA (obstructive sleep apnea) Onset Date: 08/29/18 Current Visit: No Status: Chronic - Plan 1. Serial troponins and EKG 2. Cardiology consultation 3. Echocardiogram and stress test were recently performed and unremarkable 4. Anti-platelet therapy, anti coagulation, beta-josé, statin, and O2 5. IV morphine for pain 6. Nitro p.r.n. 7. GI and DVT prophylaxis Discharge Plan: Home Plan to discharge in: 48 Hours - Advance Directives Does patient have a Living Will: No Does patient have a Durable POA for Healthcare: No - Code Status/Comfort Care Code Status Assessed: Yes Code Status: Full Code Critical Care: No Time Spent Managing PTS Care (In Minutes): 50
[2018-10-16] MEDS: SOTALOL HCL 80 MG TAB PO SCH (08:54)
[2018-10-16] MEDS ORDERED: ASPIRIN EC 81 MG TAB PO SCH (09:00)
[2018-10-16] MEDS ORDERED: SPIRONOLACTONE 25 MG TABLET PO SCH (09:00)
[2018-10-16] MEDS ORDERED: AMLODIPINE 10 MG TAB PO SCH (09:00)
[2018-10-16] MEDS ORDERED: ENOXAPARIN 40 MG/0.4 ML SQ SCH (09:00)
[2018-10-16] MEDS ORDERED: SMZ./TMP. 800/160 MG TABLET PO SCH (09:00)
[2018-10-16] MEDS ORDERED: APIXABAN 5 MG TABLET PO SCH (09:00)
[2018-10-16] MEDS ORDERED: SITAGLIPTIN PHOS 100 MG TAB PO SCH (09:00)
[2018-10-16] MEDS ORDERED: VITAMIN D 5,000 UNIT CAP PO SCH (09:00)
[2018-10-16] MEDS ORDERED: METOPROLOL TAR 50 MG TAB PO SCH (09:00)
[2018-10-16] MEDS ORDERED: GLIPIZIDE S.A. 5 MG TAB PO SCH (09:00)
[2018-10-16] MEDS ORDERED: DOCUSATE NA 100 MG CAP PO PRN (10:27)
--- NOTE | 2018-10-16 11:24 | EKG ---
Test Date: 2018-10-15 Test Time: 17:26:40 Nursing Educator: MARIYA MEASUREMENT RESULTS: Intervals: Rate: 71 OK: 150 QRSD: 80 QT: 420 QTc: 456 [place]: P: 7 OK: 150 QRS: 22 T: 62 INTERPRETIVE STATEMENTS: Normal sinus rhythm Nonspecific T wave abnormality Abnormal ECG Compared to ECG 10/09/2018 11:38:44 Sinus bradycardia no longer present T-wave abnormality still present Electronically Signed On 10-16-18 11:23:35 [employer]OR POOL CLERK by Arie Gonzalez
[2018-10-16 11:46] VITALS: O2SAT 97
--- NOTE | 2018-10-16 12:17 | P.SSS ---
Patient History Date of Service: 10/16/18 Reason for admission: Chest pain rule out acute coronary syndrome History of Present Illness: Patient is a 67-year-old female who is been in and out of the hospital over the last couple months on 3 different occasions. She has had extensive cardiac workup done as well. She was also found have atrial fibrillation with rapid ventricular response a week ago. She was cardioverted and has been in a sinus rhythm since then. She was on sotalol as well as Eliquis but the Eliquis was changed to Xarelto because she stated that she thought her tongue was swelling. Otherwise, patient has been doing well. Last night she noticed her blood pressure was significantly elevated. She decided to come into the hospital for further evaluation. In the emergency room her blood pressure was elevated at 160/80. She states that it was much higher at home around 180/100. She came into the hospital to be evaluated. Allergies hydromorphone [From Dilaudid] Allergy (Verified 08/28/18 01:33) facial swelling morphine Allergy (Verified 02/21/15 12:50) Rash lisinopril Adverse Reaction (Verified 10/07/18 11:48) Hives Home Medications: RX: Amlodipine [Norvasc*] 10 mg PO DAILY 10/16/18 RX: Atorvastatin Calcium [Lipitor*] 20 mg PO DAILY 10/16/18 RX: Cholecalciferol (Vitamin D3) [Vitamin D3] 5,000 unit PO DAILY 10/16/18 RX: Glipizide [Glipizide Xl] 10 mg PO DAILY 10/16/18 RX: Rivaroxaban [Xarelto*] 20 mg PO DAILY 10/16/18 RX: Sitagliptin Phosphate [Januvia*] 100 mg PO DAILY 10/16/18 RX: Sotalol HCl [Betapace*] 80 mg PO BID 10/16/18 RX: Spironolactone [Aldactone*] 25 mg PO DAILY 10/16/18 RX: Sulfamethoxazole/Trimethoprim [Sulfamethoxazole-Tmp Ds Tablet] 1 tab PO Q12H 10/16/18 - Past Medical/Surgical History Has patient received pneumonia vaccine in the past: Yes Diabetic: Yes -: HTN -: DM -: Asthma -: obesity -: back surgery -: lap band -: hysterectomy -: Morbid obesity - Family History Father -: Heart disease Mother -: Heart disease, Hypertension, Kidney disease Notes: "mass in stomach" Brother -: Diabetes - Social History Smoking Status: Never smoker Alcohol use: No CD- Drugs: No Caffeine use: Yes Place of Residence: Home Review of Systems 10-point ROS is otherwise unremarkable Physical Examination - Vital Signs Temperature: 97.3 F Blood Pressure: 128/65 Pulse: 49 Respirations: 16 Pulse Ox (%): 99 - Physical Exam General: Alert, In no apparent distress, Oriented x3 HEENT: Atraumatic, PERRLA, Mucous membr. moist/pink, EOMI, Sclerae nonicteric Neck: Supple, 2+ carotid pulse no bruit, No LAD, Without JVD or thyroid abnormality Respiratory: Clear to auscultation bilaterally, Normal air movement Cardiovascular: Regular rate/rhythm, Normal S1 S2 Gastrointestinal: Normal bowel sounds, No tenderness Musculoskeletal: No tenderness Integumentary: No rashes Neurological: Normal gait, Normal speech, Normal strength at 5/5 x4 extr, Normal tone, Normal affect Lymphatics: No axilla or inguinal lymphadenopathy - Studies Laboratory Data (last 24 hrs) 10/15/18 17:40: PT 20.6 H, INR 1.74 10/15/18 17:40: WBC 6.7 D, Hgb 13.3, Hct 41.6, Plt Count 331 10/15/18 17:40: Sodium 137, Potassium 4.8, BUN 15, Creatinine 1.31 H, Glucose 85 , Magnesium 2.1, Total Bilirubin 0.3, AST 22, ALT 33, Alkaline Phosphatase 135 H , Lipase 94 - Diagnosis (Problem(s)) (1) Chest pain, rule out acute myocardial infarction Current Visit: Yes Status: Resolved (2) Atrial fibrillation Onset Date: 08/29/18 Current Visit: No Status: Chronic Qualifiers: (3) Morbid obesity with BMI of 50.0-59.9, adult Onset Date: 08/29/18 Current Visit: No Status: Chronic (4) JAYDA (obstructive sleep apnea) Onset Date: 08/29/18 Current Visit: No Status: Chronic Treatment Summary: Patient was admitted, monitored overnight. Her troponins remained negative EKG without any abnormal changes. Cardiology was consulted, she was cleared from cardiology point of view. Her symptoms resolved. She was educated on how to use her sotalol and how to take her heart rate at home. Otherwise she remained stable throughout the stay. She was then discharged home in a stable manner with instructions to follow up with the primary care physician in 1 week and her private branch exchange repairer in 2-3 weeks. She was advised to return to the ER for any worsening symptoms. No medication changes were made at this time. - Disposition Disposition: ROUTINE DISCHARGE Condition: GOOD Consultations: Cardiology Dr. gruber Patient Discharge Instructions: Please follow up with your primary care physician 1 week. Please follow up with the private branch exchange repairer in 2-3 weeks. Please return to the ER for any worsening symptoms. Diet: AHA Activity: Ad armin Time Spent Managing Pts Care (In Minutes): 55
[2018-10-16] MEDS ORDERED: RIVAROXABAN 10 MG TABLET PO SCH (17:00)
[2018-10-16] MEDS ORDERED: SOTALOL HCL 80 MG TAB PO SCH (18:00)
[2018-10-16] MEDS ORDERED: BACTRIM DS PO SCH (21:00)
[2018-10-16] MEDS ORDERED: ATORVASTATIN 20 MG TAB PO SCH ×2 (21:00)
--- NOTE | 2018-10-17 00:14 | CON ---
Date of Consultation: 10/16/2018 Reason For Consultation: Chest pain and hypertension. History Of Present Illness: Ms. Méndez is a 67-year-old black woman. She was just recently here in August of 2018. Had a normal echocardiogram and normal stress test and had a cardioversion for atr ial fibrillation on October 09, 2018, six days ago. She came in mostly with hypertension, atypical c hest pain on the left side, nonradiating, sharp, stabbing. No nausea, vomiting, diaphoresis, PND, or thopnea, pedal edema, palpitations, or syncope. Had a negative troponin, chest x-ray and EKG. She h ad an INR of 1.7, creatinine of 1.31. Past Medical History: Obesity, diabetes, hypertension, asthma, and atrial fibrillation that has reso lved. Allergies: MORPHINE AND LISINOPRIL. Review of Systems: Negative. Social History: Negative for tobacco, drugs, or alcohol. Family History: Negative. Medications At Home: Norvasc, sotalol, Aldactone, Lipitor, glipizide, Xarelto, and Januvia. Physical Examination: Vital Signs: She weighed 310 pounds, sinus rhythm. Last blood pressure was normal. Initial blood p ressure was 157/88. HEENT: Negative. Neck: Supple with no bruit. Chest: Clear. Cardiac: Exam revealed a regular rhythm and rate. No murmurs, gallops, or rubs. Abdomen: Obese, but benign. Extremities: Revealed no clubbing, cyanosis, or edema. Neurological: S he was nonfocal. Pulses were present bilaterally distally. Diagnostic Data: As stated earlier. Impression And Plan: 1.Atypical chest pain, most likely musculoskeletal. 2.Hypertension, poorly controlled. We could certainly go up on the dose of the Norvasc or the Aldac tone. 3.Dyslipidemia, on Lipitor. 4.Diabetes, on glipizide. 5.Atrial fibrillation, on sotalol and Xarelto, which has resolved. 6.Renal insufficiency stage II. Ms. Méndez does not require any further cardiac workup at this point. She has just recently had a ne gative echo and a negative stress test at the time she had a cardioversion. I feel comfortable with her going home whenever it is okay with Dr. Avilez. We will see her in the office in the next 2-4 wee ks. NB/WILLIE Voice ID: [id number] Report ID: [id number]
[2018-10-17] MEDS ORDERED: JANUVIA 100 MG TABLET PO SCH (09:00)
[2018-10-17] MEDS ORDERED: SPIRONOLACTONE 25 MG TABLET PO SCH (09:00)
[2018-10-17] MEDS ORDERED: AMLODIPINE 10 MG TABLET PO SCH (09:00)
[2018-10-17] MEDS ORDERED: VITAMIN D 5,000 UNIT CAP PO SCH (09:00)
[2018-10-17] MEDS ORDERED: GLIPIZIDE 10 MG PO SCH (09:00)
[2018-10-17] MEDS ORDERED: XARELTO 20 MG TABLET PO SCH (17:00)
== END 2018-10-16 13:10 | disposition home or self-care (01) ==
LOC: ER 17:18 → 4TH 21:19
PROVIDERS: ADMIT Hospitalist; ATTEND Hospitalist
DX: R07.9 Chest pain, unspecified (principal); N39.0 Urinary tract infection, site not specified; I48.91 Unspecified atrial fibrillation; I10 Essential (primary) hypertension; E11.9 Type 2 diabetes mellitus without complications; E66.01 Morbid (severe) obesity due to excess calories; Z68.42 Body mass index [BMI] 45.0-49.9, adult; Z98.84 Bariatric surgery status; G47.33 Obstructive sleep apnea (adult) (pediatric); Z79.01 Long term (current) use of anticoagulants; E78.5 Hyperlipidemia, unspecified
CPT/HCPCS: 36415; 71045; 80048 ×2; 80061; 80076; 81003; 81025; 82550; 82553; 82962 ×2; 83690; 83735; 83880; 84484 ×3; 85025 ×2; 85610; 87086; 87088; 93005; 96360; G0378 ×2; J7030

== ENCOUNTER 2018-11-06 18:04 | Emergency (ER) | payer OTHER ==
--- OUTSIDE RECORDS SUMMARY | 2018-11-06 18:07 | XMS REPORT ---
[...] End Date Status Dosage Date GlipiZIDE XL [facility] 94318114888 10 MG Orally May 16, Active 1 tablet Once a day (for 2018 diabetes) Results No Known Results Summary Purpose eClinicalWorks Submission
--- OUTSIDE RECORDS SUMMARY | 2018-11-06 18:07 | XMS REPORT ---
[...] Medications Results No Known Results Summary Purpose [employer] Submission
--- OUTSIDE RECORDS SUMMARY | 2018-11-06 18:07 | XMS REPORT ---
:1950 [facility] Providers Name Role Phone Marilin [...] Status Dosage System Date Date Vitamin D [facility] 03714309562 2000 UNIT Active 2 tablets Orally Once (4,000 daily IU--OTC) Coreg ND 18921587696 25 mg Orally Nov 12, Active 1 tablet Twice daily 2017 Gabapentin ND 91146961377 300 MG Orally Active 1 capsule Twice a day before bedtime Amlodipine ND 15508520508 10 MG Orally b 16, Active 1 tablet Besylate Once a day 2017 Farxiga ND 61069544029 5mg Orally Once February 15May 16, Active 1 tablet in daily 2017 2017 morning for diabetes Lipitor ND 03265093999 20 mg Orally Oct 16, Active 1 tablet in Once daily 2018 evening Januvia [facility] 74608225906 100 mg Orally Nov 12, Active 1 tablet Once daily 2017 Metformin HCl [facility] 17969417466 1000 MG Orally Nov 12, Active 1 tablet Twice a day 2017 Victoza [facility] 70588979489 18 MG/3ML Active not defined Subcutaneous Meloxicam [facility] 58982782894 7.5 MG Orally Active 1 tablet Once a day Vitamin D3 [facility] 79619486214 5000 UNIT May 11, Active 1 capsule Orally Once a 2017 (otc) day Pennsaid [facility] 81519308477 2 % Transdermal Active 2 applications Twice a day to affected area Lisinopril [facility] 94169104623 20 MG Orally Active 1 tablet Once a day Results No Known Results Summary Purpose eClinicalWorks Submission
--- OUTSIDE RECORDS SUMMARY | 2018-11-06 18:07 | XMS REPORT ---
:1950 [facility] Team Providers Name Role Phone Marilin Randolph Provider Role Unavailable Allergies, Adverse Reactions, Alerts Substance Reaction Event Type MORPHINE Info Not Available Drug Allergy Lisinopril Info Not Available Drug Allergy Dilaudid Info Not Available Drug Allergy Problems Problem Type Condition Code Onset Dates Condition Status Problem Low back pain M54.5 Active Problem Seasonal allergies J30.2 Active Problem Pain in unspecified hip M25.559 Active Problem Atrial fibrillation, unspecified I48.91 Active type Assessment Chest pain, unspecified type R07.9 Active Problem Asthma, unspecified asthma J45.909 Active severity, unspecified whether complicated, unspecified whether persistent Assessment Shortness of breath R06.02 Active Assessment Atrial fibrillation, unspecified I48.91 Active type Problem Shortness of breath R06.02 Active Problem Vitamin D deficiency E55.9 Active Problem Peripheral neuritis G62.9 Active Problem Chest pain, unspecified type R07.9 Active Problem Abnormal CBC R79.89 Active Problem CPAP (continuous positive airway Z99.89 Active pressure) dependence Problem Hyperlipidemia, unspecified E78.5 Active hyperlipidemia type Problem Obstructive sleep apnea G47.33 Active Problem Uncontrolled type 2 diabetes E11.65 Active mellitus without complication, without long-term current use of insulin Problem Numbness R20.0 Active Assessment Hypertension, unspecified type I10 Active Problem Anemia, unspecified type D64.9 Active Problem Chronic pain syndrome G89.4 Active Assessment Follow-up exam Z09 Active Problem Hypertension, unspecified type I10 Active Problem Muscle cramps R25.2 Active Medications Medication Code Code Instructions Start End Status Dosage System Date Date Meloxicam [facility] 39806602369 7.5 MG Orally Active 1 tablet Once a day Lisinopril [facility] 70791299121 20 MG Orally Active 1 tablet Once a day Spironolactone [facility] 01829188287 25 MG Orally Active 1 tablet Twice a day Sotalol HCl [facility] 54435500016 80 MG Orally Active 1 [place] [address]-44 Orally Once a Active 1 capsule day (Vitamin D3/Folic Acid/Collagen, Hydrolyzed/Efren cium) Lipitor ND 68073898095 20 mg Orally Nov 12, Active 1 tablet in Once daily 2017 evening Gabapentin [facility] 76145844907 300 MG Orally Active 1 capsule Twice a day before bedtime Vitamin D3 [facility] 88191667495 5000 UNIT May 11, Active 1 capsule Orally Once a 2017 (otc) day Xarelto [facility] 98109462789 20 MG Orally Active 1 tablet with Twice daily food GlipiZIDE XL [facility] 41247181279 10 MG Orally May 16, Active 1 tablet Once a day 2017 (for diabetes) Pennsaid [facility] 69923694563 2 % Active 2 applications Transdermal to affected Twice a day area Trelegy Ellipta [facility] 33788033184 100-62.5-25 Active 1 puff MCG/INH Inhalation Once a day ProAir [facility] 16057034208 108 (90 Base) Active 2 puffs as RespiClick MCG/ACT needed Inhalation every 4-6 hrs Metformin HCl [facility] 41460954060 1000 MG Orally Nov 12, Active 1 tablet Twice a day 2017 Victoza [facility] 22573254325 18 MG/3ML Active not defined Subcutaneous Coreg ND 07956870561 25 mg Orally Nov 12, Active 1 tablet Twice daily 2017 Januvia [facility] 24665459555 100 mg Orally Nov 12, Active 1 tablet Once daily 2017 Amlodipine [facility] 07763249093 10 MG Orally Nov 12, Active 1 tablet Besylate Once a day 2017 Eliquis [facility] 04554393460 5 MG Orally Active 1 tablet Twice daily Vitamin D [facility] 31813111416 2000 UNIT Active 2 tablets Orally Once (4,000 daily IU--OTC) Results No Known Results Summary Purpose eClinicalWorks Submission
[2018-11-06 19:09] LABS: Absolute Lymphocytes (CBC) 1.8 K/uL (0.7-4.9); Absolute Monocytes 0.7 K/uL (0.1-1.3); Absolute Neutrophil 6.8 K/uL (1.8-8.0); Basophils % 0.4 % (0-1.3); Eosinophils % 1.1 % (0-4.4); Hematocrit 41.1 % (36.0-45.0); Lymphocytes % 18.8 % (15.3-44.8); MPV 8.3 fL (7.6-11.3); Monocytes % 7.7 % (3.3-12.3); RBC Red Blood Cell Count 5.12 M/uL (3.86-4.86)
[2018-11-06 19:13] LABS: Protime INR 1.67
[2018-11-06 19:33] LABS: ALT/SGPT 21 U/L (12-78); AST/SGOT 13 U/L (15-37); Albumin 3.6 g/dL (3.4-5.0); Alkaline Phosphatase 116 U/L (45-117); BUN Blood Urea Nitrogen 9 mg/dL (7-18); Bicarbonate 27 mmol/L (21-32); Bilirubin Direct 0.1 mg/dL (0-0.2); Bilirubin Total 0.5 mg/dL (0.2-1.0); Glucose Level 90 mg/dL (74-106); NT PRO-BNP 45 pg/mL (<125); Potassium 3.9 mmol/L (3.5-5.1); Protein, Total 8.5 g/dL (6.4-8.2); Sodium Level 142 mmol/L (136-145); Troponin (Emerg Dept Use Only) < 0.02 ng/mL (0.0-0.045)
--- NOTE | 2018-11-06 19:49 | RAD REPORT ---
EXAM DESCRIPTION: RAD - Chest Single View - 11/06/2018 7:10 pm CLINICAL HISTORY: Chest pain COMPARISON: October 15 TECHNIQUE: AP portable chest image was obtained 1909 hours . FINDINGS: Lungs are clear. Heart and vasculature are normal. No measurable pleural effusion and no p neumothorax. No acute bony abnormality seen. No acute aortic findings suspected. Lung markings are si milar to comparison. IMPRESSION: No acute cardiopulmonary process. No significant interval change.
--- NOTE | 2018-11-06 20:16 | RAD REPORT ---
EXAM DESCRIPTION: CT - Head Brain Wo Cont - 11/06/2018 7:45 pm CLINICAL HISTORY: Headache, weakness, dizziness COMPARISON: None. TECHNIQUE: Axial 5 mm thick images of the head were obtained without IV contrast. All CT scans are performed using dose optimization technique as appropriate and may include automated exposure control or mA/KV adjustment according to patient size. FINDINGS: No intracranial hemorrhage, mass, edema or shift of mid-line structures. No acute infarcti on changes seen. Very minimal chronic ischemic change. No atrophy. Ventricles are normal. Physiologic and arterial calcifications are present. Mastoid air cells and visualized portions of the paranasal sinuses are clear of acute finding. No acute bony findings. IMPRESSION: Negative non-contrast CT head examination for acute finding.
--- NOTE | 2018-11-06 20:36 | ER ---
Nurse's Notes [facility] Name: Vesta Méndez Age: 67 yrs Sex: Female : 1950 Arrival Date: 11/06/2018 Time: 18:06 Bed 26 Private MD: Marilin Randolph Diagnosis: Headache;Atrial fibrillation and flutter-hx of Presentation: 11/06 18:34 Presenting complaint: Patient states: lightheadedness that began yesterday afternoon. ss Reports ongoing chest discomfort 12/04 that has been going on for "a while". Pt states that she just had a cardioversion for her AFIB. Transition of care: patient was not received from another setting of care. Onset of symptoms was November 05, 2018. Risk Assessment: Do you want to hurt yourself or someone else? Patient reports no desire to harm self or others. Initial Sepsis Screen: Does the patient meet any 2 criteria? No. Patient's initial sepsis screen is negative. Does the patient have a suspected source of infection? No. Patient's initial sepsis screen is negative. Care prior to arrival: None. 18:34 Method Of Arrival: Ambulatory 18:34 Acuity: ARACELI 3 ss Historical: - Allergies: 18:36 Dilaudid; ss 18:36 Lisinopril; ss 18:36 Morphine; ss - PMHx: 18:36 Asthma; Diabetes - NIDDM; Hypertension; ss - Immunization history:: Adult Immunizations up to date. - Social history:: Smoking status: Patient/guardian denies using tobacco. - Ebola Screening: : Patient denies exposure to infectious person Patient denies travel to an Ebola-affected area in the 21 days before illness onset. - Family history:: not pertinent. - Hospitalizations: : The patient was recently seen at [facility]. Screenin:54 Abuse screen: Denies threats or abuse. Denies injuries from another. Nutritional rv screening: No deficits noted. Tuberculosis screening: No symptoms or risk factors identified. Fall Risk None identified. Assessment: 18:53 General: Appears in no apparent distress. comfortable, Behavior is calm, cooperative. rv Pain: Denies pain. Neuro: Level of Consciousness is awake, alert, obeys commands, Oriented to person, place, time, situation. Cardiovascular: Capillary refill < 3 seconds. Respiratory: Airway is patent. GI: No signs and/or symptoms were reported involving the gastrointestinal system. : No signs and/or symptoms were reported regarding the genitourinary system. EENT: No signs and/or symptoms were reported regarding the EENT system. Derm: Skin is intact. Musculoskeletal: No signs and/or symptoms reported regarding the musculoskeletal system. 19:26 Reassessment: Patient appears in no apparent distress at this time. Patient and/or rv family updated on plan of care and expected duration. Pain level reassessed. Patient is alert, oriented x 3, equal unlabored respirations, skin warm/dry/pink. Vital Signs: 18:33 BP 134 / 88; Pulse 73; Resp 15; Temp 97.1(TE); Pulse Ox 97% on R/A; Weight 136.08 kg; ss Height 5 ft. 7 in. (170.18 cm); Pain 3/10; 19:24 BP 107 / 82; Pulse 60; Resp 12 S; Pulse Ox 96% on R/A; rv 21:10 BP 125 / 80; Pulse 72; Resp 20 S; Pulse Ox 99% on R/A; rv 18:33 Body Mass Index 46.99 (136.08 kg, 170.18 cm) ED Course: 18:06 Patient arrived in ED. sb2 18:06 Marilin Randolph MD is Private Physician. sb2 18:33 Arm band placed on right wrist. ss 18:35 Triage completed. ss 18:40 Anderson Meredith, RN is Primary Nurse. la1 18:40 Wojciech Malave MD is Attending Physician. rn 18:55 Patient has correct armband on for positive identification. Bed in low position. Call rv light in reach. Side rails up X 1. Adult w/ patient. Pulse ox on. NIBP on. 19:00 Inserted saline lock: 20 gauge in right antecubital area, using aseptic technique. rv Blood collected. 19:05 Basic Metabolic Panel Sent. rv 19:05 Basic Metabolic Panel Sent. rv 19:05 CBC with Diff Sent. rv 19:05 LFT's Sent. rv 19:05 Magnesium Sent. rv 19:05 NT PRO-BNP Sent. rv 19:05 PT-INR Sent. rv 19:09 XRAY Chest (1 view) In Process Unspecified. EDMS 19:49 Attending Physician role handed off by Wojciech Malave MD julia 19:49 Ernie Marinelli MD is Attending Physician. [facility] 19:50 CT Head Brain wo Cont In Process Unspecified. EDMS 20:34 Marilin Randolph MD is Referral Physician. [facility] 20:34 Lane Greco MD is Referral Physician. julia 21:11 No provider procedures requiring assistance completed. IV discontinued, bleeding rv controlled, No redness/swelling at site. Pressure dressing applied. Administered Medications: No medications were administered Outcome: 20:35 Discharge ordered by . julia 21:11 Discharged to home ambulatory. rv 21:11 Condition: good 21:11 Discharge instructions given to patient, family, Instructed on discharge instructions, follow up and referral plans. Demonstrated understanding of instructions, follow-up care. 21:11 Patient left the ED. rv Signatures: Dispatcher [employer] EDWY Ernie Marinelli MD MD cha Nieto, Roman, MD MD rn Smirch, Shelby, FRANCK RN Anderson Hinson RN RN la1 Tori Lancaster sbDennis Collier RN RN rv
--- NOTE | 2018-11-06 20:36 | EDPHYS ---
Physician Documentation [facility] Name: Vesta Méndez Age: 67 yrs Sex: Female : 1950 Arrival Date: 11/06/2018 Time: 18:06 Bed 26 Private MD: Marilin Randolph ED Physician Ernie Marinelli HPI: 11/06 18:55 This 67 yrs old Black Female presents to ER via Ambulatory with complaints of rn LIGHTHEADED, CHEST "FEELS FUNNY". 18:55 The patient complains of pain to the forehead. The patient describes the headache as rn aching. Onset: The symptoms/episode began/occurred 4 week(s) ago. Severity of symptoms: At its worst the pain was moderate, in the emergency department the pain is unchanged. The patient has experienced similar episodes in the past. Report had scheduled cardioversion here about 1 month ago, on xarelto and placed on sotalol. Has been having episodes of headache/head pressure/chest pain. Has been evaluated for chest pain including cath and echo, without answer, symptoms improved aft cutting sotalol in half. . Historical: - Allergies: 18:36 Dilaudid; ss 18:36 Lisinopril; ss 18:36 Morphine; ss - PMHx: 18:36 Asthma; Diabetes - NIDDM; Hypertension; ss - Immunization history:: Adult Immunizations up to date. - Social history:: Smoking status: Patient/guardian denies using tobacco. - Ebola Screening: : Patient denies exposure to infectious person Patient denies travel to an Ebola-affected area in the 21 days before illness onset. - Family history:: not pertinent. - Hospitalizations: : The patient was recently seen at [facility]. ROS: 18:55 Constitutional: Negative for fever, chills, and weight loss, Eyes: Negative for injury, rn pain, redness, and discharge, Neck: Negative for injury, pain, and swelling, Cardiovascular: Negative for edema Respiratory: Negative for shortness of breath, cough, wheezing, and pleuritic chest pain, Abdomen/GI: Negative for abdominal pain, nausea, vomiting, diarrhea, and constipation, MS/Extremity: Negative for injury and deformity, Skin: Negative for injury, rash, and discoloration, Neuro: Negative for weakness, numbness, tingling, and seizure. Exam: 18:55 Constitutional: This is a well developed, well nourished patient who is awake, alert, rn and in no acute distress. Head/Face: Normocephalic, atraumatic. Eyes: Pupils equal round and reactive to light, extra-ocular motions intact. Lids and lashes normal. Conjunctiva and sclera are non-icteric and not injected. Cornea within normal limits. Periorbital areas with no swelling, redness, or edema. Neck: Trachea midline, no thyromegaly or masses palpated, and no cervical lymphadenopathy. Supple, full range of motion without nuchal rigidity, or vertebral point tenderness. No Meningismus. Cardiovascular: Regular rate and rhythm. No pulse deficits. Respiratory: Lungs have equal breath sounds bilaterally, clear to auscultation. No increased work of breathing, no retractions or nasal flaring. Skin: Warm, dry with normal turgor. Normal color with no rashes, no lesions, and no evidence of cellulitis. MS/ Extremity: Pulses equal, no cyanosis. Neurovascular intact. Full, normal range of motion. Equal circumference. Neuro: Awake and alert, GCS 15, oriented to person, place, time, and situation. Cranial nerves II-XII grossly intact. Motor strength 5/5 in all extremities. Sensory grossly intact. Cerebellar exam normal. Vital Signs: 18:33 BP 134 / 88; Pulse 73; Resp 15; Temp 97.1(TE); Pulse Ox 97% on R/A; Weight 136.08 kg; ss Height 5 ft. 7 in. (170.18 cm); Pain 3/10; 19:24 BP 107 / 82; Pulse 60; Resp 12 S; Pulse Ox 96% on R/A; rv 21:10 BP 125 / 80; Pulse 72; Resp 20 S; Pulse Ox 99% on R/A; rv 18:33 Body Mass Index 46.99 (136.08 kg, 170.18 cm) ss MDM: 18:40 Patient medically screened. rn 19:06 Transition of care: After a detail discussion of the patient's case, care is rn transferred to Ernie Mrainelli MD. 19:49 Patient medically screened. [facility] 20:34 Data reviewed: vital signs, nurses notes, lab test result(s), EKG, radiologic studies, [facility] CT scan, plain films. 11/06 18:54 Order name: Basic Metabolic Panel rn 11/06 18:54 Order name: CBC with Diff; Complete Time: 20:22 rn 11/06 18:54 Order name: LFT's; Complete Time: 20:22 rn 11/06 18:54 Order name: Magnesium; Complete Time: 20:22 rn 11/06 18:54 Order name: NT PRO-BNP; Complete Time: 20:22 rn 11/06 18:54 Order name: PT-INR; Complete Time: 20:22 rn 11/06 18:33 Order name: EKG; Complete Time: 18:33 ss 11/06 18:33 Order name: EKG - Nurse/Tech; Complete Time: 18:33 ss 11/06 18:54 Order name: Troponin (emerg Dept Use Only); Complete Time: 20:22 rn 11/06 18:54 Order name: XRAY Chest (1 view); Complete Time: 20:22 rn 11/06 18:54 Order name: Cardiac monitoring; Complete Time: 19:05 rn 11/06 18:54 Order name: CT Head Brain wo Cont; Complete Time: 20: rn 11/06 18:55 Order name: Basic Metabolic Panel; Complete Time: 20:22 EDMS 11/06 21:10 Order name: Urine Dipstick--Ancillary (enter results) 11/06 18:54 Order name: IV Saline Lock; Complete Time: 19:05 rn 11/06 18:54 Order name: Labs collected and sent; Complete Time: 19:05 rn 11/06 18:54 Order name: O2 Per Protocol; Complete Time: 19:06 rn 11/06 18:54 Order name: O2 Sat Monitoring; Complete Time: 19:06 rn Administered Medications: No medications were administered Disposition: 11/06/18 20:35 Discharged to Home. Impression: Headache, Atrial fibrillation and flutter - hx of. - Condition is Stable. - Discharge Instructions: Atrial Fibrillation, Type 2 Diabetes Mellitus, Diagnosis, Adult, General Headache Without Cause, General Headache Without Cause, Nnnn-[id number], Type 2 Diabetes Mellitus, Diagnosis, Adult, [id number], Atrial Fibrillation, [id number], Type 2 Diabetes Mellitus, Self Care, Adult, Type 2 Diabetes Mellitus, Self Care, Adult, [id number]. - Medication Reconciliation Form, Thank You Letter, Antibiotic Education, Prescription Opioid Use form. - Follow up: Marilin Randolph MD; When: 2 - 3 days; Reason: Recheck today's complaints, Continuance of care, Re-evaluation by your physician. Follow up: Lane Greco MD; When: Tomorrow; Reason: Recheck today's complaints, Continuance of care, Re-evaluation by your physician. - Problem is new. - Symptoms have improved. Signatures: Dispatcher [employer] EDMS rEnie Marinelli MD MD cha Nieto, Roman, MD MD rn SmirLeslie echevarria RN RN ss Dennis Burroughs RN RN rv Corrections: (The following items were deleted from the chart) 21:11 20:35 11/06/2018 20:35 Discharged to Home. Impression: Headache; Atrial fibrillation rv and flutter - hx of. Condition is Stable. Forms are Medication Reconciliation Form, Thank You Letter, Antibiotic Education, Prescription Opioid Use. Follow up: Marilin Randolph; When: 2 - 3 days; Reason: Recheck today's complaints, Continuance of care, Re-evaluation by your physician. Follow up: Lane Greco; When: Tomorrow; Reason: Recheck today's complaints, Continuance of care, Re-evaluation by your physician. Problem is new. Symptoms have improved. julia
--- NOTE | 2018-11-06 21:49 | EKG ---
Test Date: 2018-11-06 Test Time: 18:35:51 Bareback Rider: [place] MEASUREMENT RESULTS: Intervals: Rate: 69 CT: 136 QRSD: 78 QT: 390 QTc: 417 Dairy: P: -9 CT: 136 QRS: -3 T: -1 INTERPRETIVE STATEMENTS: Sinus rhythm with premature atrial complexes Nonspecific T wave abnormality Abnormal ECG Compared to ECG 10/15/2018 17:26:40 Atrial premature complex(es) now present T-wave abnormality still present Electronically Signed On 11-06-18 21:49:[address] Greco
[2018-11-06 22:05] VITALS: TEMP 97.1
[2018-11-06 22:07] VITALS: BP 125/80; O2SAT 99
[2018-11-06 22:32] LABS: Urine Blood TRACE (NEG); Urine Glucose NEGATIVE (NEG); Urine Protein NEGATIVE (NEG); Urine Specific Gravity 1.025 (1.005-1.030); Urine pH 5.5 (5.0-7.0)
== END 2018-11-06 21:11 | disposition home or self-care (01) ==
LOC: ER 18:04
DX: R51 Headache (principal); Z88.5 Allergy status to narcotic agent; Z88.8 Allergy status to other drugs, medicaments and biological substances; J45.909 Unspecified asthma, uncomplicated; E11.9 Type 2 diabetes mellitus without complications; I10 Essential (primary) hypertension; I48.91 Unspecified atrial fibrillation
CPT/HCPCS: 36415; 70450; 71045; 80048; 80076; 81003; 83735; 83880; 84484; 85025; 85610; 93005; 99284

== ENCOUNTER 2020-02-19 12:04 | Emergency (ER) | payer OTHER ==
--- OUTSIDE RECORDS SUMMARY | 2020-02-19 12:06 | XMS REPORT | Clinical Summary ---
:1950 Author Organization [facility] Address [address] [place] [id number] Care Team Providers Name Role Phone Marilin Randolph MD Primary Care Provider Allergies Active Allergy Reactions Severity Noted Date Comments Hydromorphone 11/23/2018 Apixaban Other (See Comments) 11/23/2018 Throat swelling Lisinopril 11/23/2018 Morphine 11/23/2018 Sotalol Other (See Comments) 11/23/2018 Dizzine ss, headache Medications Medication Sig Dispensed Refills Start Date End Date Status amLODIPine (NORVASC) 10 Take 10 mg by 1 10/31/2018 Active mg tablet mouth daily. atorvastatin (LIPITOR) Take 20 mg by 1 10/31/2018 Active 20 MG tablet mouth every evening. glipiZIDE (GLUCOTROL) Take 10 mg by 2 10/31/2018 Active 10 MG 24 hr tablet mouth daily. metoprolol succinate XL Take 25 mg by 6 11/07/2018 Active (TOPROL-XL) 25 mg 24 hr mouth 2 (two) tablet times a day. XARELTO 20 mg tablet TAKE 1 TABLET BY 6 10/31/2018 Active MOUTH EVERY DAY EVENING MEAL JANUVIA 100 mg tablet Take 100 mg by 0 10/31/2018 Active mouth daily. Active Problems Problem Noted Date Essential hypertension 11/23/2018 Cardiac risk counseling 11/23/2018 Persistent atrial fibrillation 11/22/2018 Family History Medical History Relation Name Comments Heart attack Father Heart failure Mother Relation Name Status Comments Father Mother Social History Tobacco Use Types Packs/Day Years Used Date Never Smoker Smokeless Tobacco: Never Used Alcohol Use Drinks/Week oz/Week Comments No Alcohol Habits Answer Date Recorded How often do you have a drink containing alcohol? Never 11/23/2018 How many drinks containing alcohol do you have on a typical Not asked day when you are drinking? How often do you have six or more drinks on one occasion? No t asked Sex Assigned at Date Recorded Not on file Job Start Date Occupation Industry Not on file Not on file Not on file Travel History Travel Start Travel End No recent travel history available. Last Filed Vital Signs Not on file Plan of Treatment Health Maintenance Due Date Last Done Comments BREAST CANCER SCREENING 2002 COLONOSCOPY SCREENING 2002 SHINGLES VACCINES (#1) 2002 65+ PNEUMOCOCCAL VACCINE (1 of 2 - PCV13) 2017 INFLUENZA VACCINE 04/27/2020 Results Not on fileafter 02/18/2019 Advance Directives For more information, please contact: [phone] Type Date Recorded Patient Mexican Food Cook Explanati on Advance Directives, Living Will and Medical Power of Kindergarten Tutor
--- OUTSIDE RECORDS SUMMARY | 2020-02-19 12:07 | XMS REPORT ---
:[address] [facility] t Address [facility] [address] [place] [address] Care Team Providers Name Role Phone Agustín ALMONTE Primary Care Physician Problems Condition Condition Condition Status Onset Resolution Last Treating Co mments Source Name Details Category Date Date Treatment Clinician Date Essential Essential Disease Active [place] [facility] hypertensi hypertensi 2-27 Me thodi on on 00:00: st 00 Cardiac Cardiac Disease Active [place] risk risk 2-27 Methodi counseling counseling 00:00: st 00 Persistent Persistent Disease Active [place] atrial atrial 2-26 Methodi fibrillati fibrillati 00:00: st on on 00 Uncontroll Uncontroll Problem Active C HI [facility] ed type 2 ed type 2 Luke [facility] - diabetes diabetes Memori a mellitus mellitus l without without Outpati complicati complicati en t on, on, Clinics without without long-term long-term current current use of use of insulin insulin Hyperlipid Hyperlipid Problem Active [facility] emia, emia, [facility] - unspecifie unspecifie Me moria d d l hyperlipid hyperlipid Ou tpati emia type emia type ent Clinics Numbness Numbness [facility] Vitamin D Vitamin D Problem Active [facility] deficiency deficiency [facility] Peripheral Peripheral Problem Active [facility] neuritis neuritis [facility] Abnormal Abnormal Problem Active [facility] CBC CBC [facility] Low back Low back Problem Active [facility] pain [facility] Anemia, Anemia, Problem Active [facility] unspecifie unspecifie [facility]ara [facility]es - d type d type Memoria l [facility] Seasonal Seasonal Problem Active [facility] allergies allergies [facility] Pain in Pain in Problem Active [facility] unspecifie unspecifie [facility]ara kes - d hip d hip Memoria l [facility] Chronic Chronic Problem Active [facility] pain pain [facility] - syndrome syndrome Memori a l [facility] Muscle Muscle Problem Active [facility] cramps cramps [facility] Hypertensi Hypertensi Problem Active C [facility] on, on, [facility] - unspecifie unspecifie Me moria d type d type l [facility] Chest Chest Problem Active [facility] pain, pain, [facility] - unspecifie unspecifie Me moria d type d type l [facility] Asthma, Asthma, Problem Active [facility] unspecifie unspecifie Dara kes - d asthma d asthma Memori a severity, severity, l unspecifie unspecifie Ou tpati d whether d whether ent complicate complicate Cl inics d, d, unspecifie unspecifie d whether d whether persistent persistent Shortness Shortness Problem Active [facility] of breath of breath [facility] CPAP CPAP Problem Active [facility] (continuou (continuou [facility]ara kes - s positive s positive Me moria airway airway l pressure) pressure) Outp ati dependence dependence en t Clinics Obstructiv Obstructiv Problem Active C [facility] e sleep e sleep [facility] - apnea apnea Memoria l [facility] History of History of Problem Active C [facility] atrial atrial [facility] - fibrillati fibrillati Me moria on on l [facility] Upper back Upper back Problem Active [facility] pain pain [facility] Morbid Morbid Problem Active [facility] (severe) (severe) Lukes - obesity obesity Memoria due to due to l excess excess [facility] calories calories ent Clinics Body mass Body mass Problem Active [facility] index index [facility] - (BMI) of (BMI) of Memori a 45.0-49.9 45.0-49.9 l in adult in adult Outflt i ent Clinics Paroxysmal Paroxysmal Problem Active C [facility] atrial atrial [facility] - fibrillati fibrillati Me moria on on l [facility] Allergies, Adverse Reactions, Alerts Allergy Allergy Status Severity Reaction(s) Onset Inactive Treating Comm ents Source Name Type Date Date Clinician Hydromor Propensi Active [place] phone ty to 11-23 Methodi adverse 00:00: st reaction 00 s to drug Apixaban Propensi Active Other (See Throat [place] ty to Comments) 11-23 swelling Metho di adverse 00:00: st reaction 00 s to drug Lisinopr Propensi Active [place] ty to 11-23 Methodi adverse 00:00: st reaction 00 s to drug Morphine Propensi Active [place] ty to 11-23 Methodi adverse 00:00: st reaction 00 s to drug Sotalol Propensi Active Other (See Dizziness [place] ty to Comments) 11-23 , Methodi adverse 00:00: headache st reaction 00 s to drug MORPHINE Adverse Active Info Not [facility] t Reaction Available [facility] ent Clinics Lisinopr Adverse Active Info Not [facility] t il Reaction Available [facility] ent Clinics Sotalol Adverse Active Dizzy/lighth [facility] I [facility] HCl Reaction eaded, LING, Luke s - heavy head Memori a l [facility] Dilaudid Adverse Active Info Not [facility] t Reaction Available [facility] ent Clinics Family History Family Member Diagnosis Comments Start Date Stop Date Source Natural father Heart attack [place] [facility] Natural mother Heart failure [place] [facility] Social History Social Habit Start Date Stop Date Quantity Comments Source History [facility] Meth odist Alcohol Std Drinks History [facility] Meth odist Alcohol Binge Sex Assigned At [facility] ethodist Alcohol intake 2018-11-23 2018-11-23 Current [facility] thodist 00:00:00 00:00:00 non-drinker of alcohol (finding) History [facility] 2018-11-23 2018-11-23 1 [place] Meth odist Alcohol Frequency 00:00:00 00:00:00 Smoking Status Start Date Stop Date Source Never smoker [place] Queis t Medications Ordered Filled Start Stop Current Ordering Indication Dosage Frequency Signature Comments Components Source Medication Medication Date Date Medication? Clinician (SIG) Name Name metoprolol Yes 25mg Q.5D Take 25 mg [place] succinate 2-11 by mouth 2 Meth carlos XL 00:00: (two) st (TOPROL-XL) 00 times a 25 mg 24 hr day. tablet amLODIPine Yes 10mg QD Take 10 mg [place] (NORVASC) 2-04 by mouth Method i 10 mg 00:00: daily. st tablet 00 atorvastati Yes 20mg QD Take 20 mg [place] (LIPITOR) 2-04 by mouth Meth carlos 20 MG 00:00: every st tablet 00 evening. glipiZIDE Yes 10mg QD Take 10 mg [place] (GLUCOTROL) 2-04 by mouth Meth carlos 10 MG 24 hr 00:00: daily. st tablet 00 XARELTO 20 Yes TAKE 1 [place] mg tablet 2-04 TABLET BY Metho di 00:00: MOUTH st 00 EVERY DAY EVENING MEAL JANUVIA 100 Yes 100mg QD Take 100 [place] mg tablet 2-04 mg by Methodi 00:00: mouth st 00 daily. Lipitor Lipitor Yes Marilin 1 tablet [facility] Procedures This patient has no known procedures. Plan of Care Planned Activity Planned Date Details Comments Source Future Scheduled 2020-04-27 INFLUENZA VACCINE Cynthiato n Mormon Test 00:00:00 [code = INFLUENZA VACCINE] Future Scheduled 2017 65+ PNEUMOCOCCAL [place] [facility] Test 00:00:00 VACCINE (1 of 2 - PCV13) [code = 65+ PNEUMOCOCCAL VACCINE (1 of 2 - PCV13)] Future Scheduled 2002 BREAST CANCER [place] [facility] Test 00:00:00 SCREENING [code = BREAST CANCER SCREENING] Future Scheduled 2002 COLONOSCOPY SCREENING Madan yi Mormon Test 00:00:00 [code = COLONOSCOPY SCREENING] Future Scheduled 2002 SHINGLES VACCINES (#1) [place] Test 00:00:00 [code = SHINGLES VACCINES (#1)] Encounters Start End Encounter Admission Attending Care Care Encounter Source Date/Time Date/Time Type Type Clinicians Facility Department ID 2020-01-01 2020-01-01 Outpatient Kourtney Valles [id number] [facility] 15[facility]00[facility]00 15:00:00 [facility] Medicine Medicine [facility] Clinics 2019-12-12 2019-12-12 Outpatient Kourtney Valles [id number] 15:01:00 15:01:00 [facility] Medicine Medicine Outpati ent Clinics 2019-12-01 2019-12-01 [facility] [id number] 11:45:00 11:45:00 t [facility] Medicine Outpati ent Clinics 2019-10-13 2019-10-13 [facility] [id number] 09:41:00 09:41:00 t [facility] Medicine Outpati ent Clinics 2019-07-21 2019-07-21 [facility] [id number] 09[facility]00:00 09:00:00 t [facility] Medicine Outpati ent Clinics 2019-04-12 2019-04-12 [facility] [id number] 12:43:00 12:43:00 [facility] Medicine Outpati ent Clinics 2019-04-11 2019-04-11 [facility] [id number] 10:20:00 10:20:00 t [facility] Medicine Outpati ent Clinics 2019-02-10 2019-02-10 [facility] [id number] 10:00:00 10:00:00 t [facility] Medicine Outpati ent Clinics 2019-01-31 2019-01-31 [facility] [id number] 09:32:00 09:32:00 t [facility] Medicine Outpati ent Clinics 2019-01-20 2019-01-20 [facility] [id number] 11:00:00 11:00:00 t [facility] Medicine Outpati ent Clinics 2018-10-25 2018-10-25 [facility] [id number] 10:30:00 10:30:00 t [facility] Medicine Outpati ent Clinics 2018-05-26 2018-05-26 [facility] [id number] 09:14:00 09:14:00 t Urgent [facility] Clin[facility] 2018-05-12 2018-05-12 Outpatient Kourtney Oconnellt [id number] 15:24:00 15:24:[address] [facility] ent Clinics 2018-05-12 2018-05-12 Outpatient Kourtney Valles [id number] 00:29:00 00:29:00 t [facility] Clinics 2018-05-11 2018-05-11 Outpatient Kourtney Oconnellt [id number] 11:30:00 11:30:[address] [facility] ent Clinics Results This patient has no known results.
--- OUTSIDE RECORDS SUMMARY | 2020-02-19 12:08 | XMS REPORT ---
:1950 Author Organization [employer] Care Team Providers Name Role Phone Marilin Randolph Provider Role Unavailable Allergies No Known Allergies Problems Problem Type Condition Code Onset Dates Condition Statu s Problem Abnormal CBC R79.89 Active Problem Shortness of breath R06.02 Active Problem Chest pain, unspecified type R07.9 Active Problem Morbid obesity E66.01 Active Problem Uncontrolled type 2 diabetes E11.65 Active mellitus without complication, without long-term current use of insulin Problem Body mass index (BMI) of 45.0-49.9 Z68.42 Active in adult Problem Hypertension, unspecified type I10 Active Problem Obstructive sleep apnea G47.33 Acti ve Problem Paroxysmal atrial fibrillation I48.0 Active Problem Upper back pain M54.9 Active Problem Asthma, unspecified asthma J45.909 A ctive severity, unspecified whether complicated, unspecified whether persistent Problem Morbid (severe) obesity due to E66.01 Active excess calories Problem History of atrial fibrillation Z86.79 Active Problem Muscle cramps R25.2 Active Problem Hyperlipidemia, unspecified E78.5 Active hyperlipidemia type Problem Numbness R20.0 Active Problem Chronic pain syndrome G89.4 Active Problem Pain in unspecified hip M25.559 Acti ve Problem Seasonal allergies J30.2 Active Problem Anemia, unspecified type D64.9 Act [place] Problem Peripheral neuritis G62.9 Active Problem CPAP (continuous positive airway Z99.89 Active pressure) dependence Problem Low back pain M54.5 Active Problem Vitamin D deficiency E55.9 Active Medications Medication Code System Code Instructions Start Date End Date Status Dosage Lipitor [facility] 66996676031 20 MG Orally Once Active 1 tablet a day Results No Known Results Summary Purpose [employer]ClinicalWorks Submission
--- OUTSIDE RECORDS SUMMARY | 2020-02-19 12:08 | XMS REPORT ---
[...] Problem Vitamin D deficiency E55.9 Active Medications No Known Medications Results No Known Results Summary Purpose [employer] Submission
--- OUTSIDE RECORDS SUMMARY | 2020-02-19 12:08 | XMS REPORT ---
:1950 [facility] Team Providers Name Role Phone Marilin Randolph Provider Role Unavailable Allergies, Adverse Reactions, Alerts Substance Reaction Event Type MORPHINE Info Not Available Drug Allergy Sotalol HCl Dizzy/lightheaded, LING, heavy head Drug A llergy Lisinopril Info Not Available Drug Allergy Dilaudid Info Not Available Drug Allergy Problems Problem Type Condition Code Onset Dates Condition Statu s Assessment Asthma, unspecified asthma J45.909 A ctive severity, unspecified whether complicated, unspecified whether persistent Assessment Obstructive sleep apnea G47.33 Acti ve Assessment Uncontrolled type 2 diabetes E11.65 Active mellitus without complication, without long-term current use of insulin Assessment Hyperlipidemia, unspecified E78.5 Active hyperlipidemia type Assessment Paroxysmal atrial fibrillation I48.0 Active Assessment Screening mammogram, encounter for Z12.31 Active Assessment Abnormal urinalysis R82.90 Active Assessment Vaginal discharge N89.8 Active Assessment Hypertension, unspecified type I10 Active Problem Peripheral neuritis G62.9 Active Problem Vitamin D deficiency E55.9 Active Problem CPAP (continuous positive airway Z99.89 Active pressure) dependence Problem Abnormal CBC R79.89 Active Problem Shortness of breath R06.02 Active Problem Chest pain, unspecified type R07.9 Active Problem Morbid obesity E66.01 Active Problem Body mass index (BMI) of 45.0-49.9 Z68.42 Active in adult Problem Uncontrolled type 2 diabetes E11.65 Active mellitus without complication, without long-term current use of insulin Problem Hypertension, unspecified type I10 Active Problem Paroxysmal atrial fibrillation I48.0 Active Problem Obstructive sleep apnea G47.33 Acti ve Problem Upper back pain M54.9 Active Problem Asthma, unspecified asthma J45.909 A ctive severity, unspecified whether complicated, unspecified whether persistent Problem Morbid (severe) obesity due to E66.01 Active excess calories Problem History of atrial fibrillation Z86.79 Active Assessment Body mass index (BMI) of 45.0-49.9 Z68.42 Active in adult Problem Muscle cramps R25.2 Active Assessment Morbid obesity E66.01 Active Problem Hyperlipidemia, unspecified E78.5 Active hyperlipidemia type Problem Numbness R20.0 Active Assessment Chronic pain syndrome G89.4 Active Problem Chronic pain syndrome G89.4 Active Problem Pain in unspecified hip M25.559 Acti ve Problem Seasonal allergies J30.2 Active Problem Anemia, unspecified type D64.9 Act aur[place] Problem Low back pain M54.5 Active Medications Medication Code Code Instructions Start End Status Dosage System Date Date Meloxicam [facility] 84071272571 7.5 MG Orally Active 1 ta blet Once a day Spironolactone ND 07969341271 25 MG Orally Active 1 tablet Twice a day Metoprolol ND 78302353471 25 mg Orally Active 1 ta blet Succinate ER Twice a day Vitamin D [facility] 97544814400 2000 UNIT Active 2 tablet s Orally Once (4,000 daily IU--OTC) Ventolin HFA [facility] 48614185574 108 (90 Base) January 31, Active 2 puffs MCG/ACT 2019 Inhalation every 4 to 6 hours prn SOB/wheezing Metformin HCl ND 62132108690 1000 MG Orally Nov 12, Active 1 tablet Twice a day 2017 Sotalol HCl ND 61091974404 80 MG Orally Active 1 t ablet Twice daily Januvia [facility] 16604884893 100 MG Orally Active 1 tabl et Once daily GlipiZIDE XL [facility] 72467610121 10 MG Orally Active 1 tablet Once a day (for diabetes) Lisinopril [facility] 92401422150 20 MG Orally Active 1 ta blet Once a day Eliquis 5 mg [facility] 11175089538 5 mg Orally March Active 1 t ablet Twice daily 2018 Gabapentin ND 40715843569 300 MG Orally Active 1 c apsule Twice a day before bedti me Victoza ND 09093220411 18 MG/3ML Active not define d Subcutaneous Coreg ND 61394454894 25 mg Orally Nov 12, Active 1 table t Twice daily 2017 Eliquis [facility] 53485496700 5 MG Orally Active 1 tablet Twice daily Trelegy Ellipta [facility] 55229128990 100-62.5-25 Active 1 puff MCG/INH Inhalation Once a day Amlodipine [facility] 73548395252 10 MG Orally Active 1 ta blet Besylate Once daily Lipitor [facility] 27682432115 20 MG Active TAKE 1 TABLE T BY MOUTH EVERY EVENING Pennsaid [facility] 03175167833 2 % Active 2 applicati ons Transdermal to affected Twice a day area ProAir [facility] 17929185397 108 (90 Base) Active 2 puff s as RespiClick MCG/ACT needed Inhalation every 4-6 hrs Vitamin D3 [facility] 95073440523 5000 UNIT May 11, Active 1 capsu le Orally Once a 2017 (otc) day CyFolex NDC 0 Orally Once a Active 1 capsule day (Vitamin D3/Folic Acid/Collagen, Hydrolyzed/Efren cium) Results Name Result Date Reference Range Unit Abnormali ty Flag Urine Dip Stick ----Appearance Yellow & Clear 20191201 ----SP. Gr 1.025 20191201 ----pH 6.0 20191201 ----Ketone Negative 20191201 ----Glucose Negative 20191201 ----Blood Negative 20191201 ----Protein 1+ 20191201 ----Nitrite Positive 20191201 ----Leukocytes Trace 20191201 Summary Purpose eClinicalWorks Submission
[2020-02-19 13:54] LABS: Urine Blood NEGATIVE (NEG); Urine Glucose NEGATIVE (NEG); Urine Protein NEGATIVE (NEG); Urine Specific Gravity 1.025 (1.005-1.030); Urine pH 5.5 (5.0-7.0)
[2020-02-19 14:01] LABS: Urine Bacteria >50 /HPF (<20); Urine Culture Reflex Order NOT NEEDED; Urine RBC NONE SEEN /HPF (NONE SEEN)
[2020-02-19 14:07] LABS: Absolute Lymphocytes (CBC) 1.1 K/uL (0.7-4.9); Basophils % 0.6 % (0-1.3); Hematocrit 38.6 % (36.0-45.0); Lymphocytes % 11.7 % (15.3-44.8); MPV 8.2 fL (7.6-11.3); RBC Red Blood Cell Count 4.83 M/uL (3.86-4.86)
--- NOTE | 2020-02-19 14:14 | RAD REPORT ---
EXAM DESCRIPTION: CT - Stone Protocol - 02/19/2020 2:02 pm CLINICAL HISTORY: Flank pain. left flank pain COMPARISON: No comparisons TECHNIQUE: Axial images were obtained without oral or IV contrast. Lack of contrast limits solid org an and vascular assessment. The lidpb-hy-xyox spans the entirety of the system partially obscuring uppermost abdomen and lung bases. Coronal reformatted images were obtained and reviewed. All CT scans are performed using dose optimization technique as appropriate and may include automated exposure control or mA/KV adjustment according to patient size. FINDINGS: The lower lung christine are clear. Imaged portions of the liver and spleen show no suspicious findings on non-contrast imaging. The panc reas and adrenal glands are normal. No pathologic lymphadenopathy in the abdomen or pelvis. No urinary tract stones or obstructive uropathy. No bowel obstruction, free air, free fluid or abscess. Normal appendix noted. Postsurgical changes are present lower lumbar spine. IMPRESSION: No urinary tract stones or obstructive uropathy.
[2020-02-19 14:20] LABS: Potassium 4.2 mmol/L (3.5-5.1)
[2020-02-19 15:21] VITALS: BP 136/87; TEMP 98.1; O2SAT 98
--- NOTE | 2020-02-26 12:18 | ER ---
Nurse's Notes [facility] Name: Vesta Méndez Age: 69 yrs Sex: Female : 1950 Arrival Date: 02/19/2020 Time: 12:06 Bed 15 Private MD: Diagnosis: Urinary tract infection, site not specified Presentation: 02/18 12:19 Chief complaint: Intermittent sharp left flank pain x 2 hrs. Coronavirus screen: hb Proceed with normal triage. Ebola Screen: No symptoms or risks identified at this time. Initial Sepsis Screen: Does the patient meet any 2 criteria? No. Patient's initial sepsis screen is negative. Does the patient have a suspected source of infection? No. Patient's initial sepsis screen is negative. Risk Assessment: Do you want to hurt yourself or someone else? Patient reports no desire to harm self or others. Onset of symptoms was February 19, 2020. 12:19 Method Of Arrival: Ambulatory hb 12:19 Acuity: ARACELI 3 hb Triage Assessment: 12:30 General: Appears in no apparent distress. comfortable, obese, Behavior is cooperative, bp appropriate for age, anxious. Pain: Complains of pain in left flank. EENT: No deficits noted. Neuro: No deficits noted. Cardiovascular: No deficits noted. Respiratory: No deficits noted. GI: No signs and/or symptoms were reported involving the gastrointestinal system. : No signs and/or symptoms were reported regarding the genitourinary system. Derm: No deficits noted. Musculoskeletal: No deficits noted. Historical: - Allergies: 12:22 Dilaudid; hb 12:22 Lisinopril; hb 12:22 Morphine; hb - PMHx: 12:22 Asthma; Diabetes - NIDDM; Hypertension; Atrial Fib; hb - PSHx: 12:22 Back; Hysterectomy; Lap Band; Lap Band Removal; hb 12:23 Hernia repair; hb - Immunization history:: Adult Immunizations up to date. - Social history:: Smoking status: Patient denies any tobacco usage or history of. - Family history:: not pertinent. - Hospitalizations: : No recent hospitalization is reported. Screenin:30 Abuse screen: Denies threats or abuse. Denies injuries from another. Nutritional bp screening: No deficits noted. Tuberculosis screening: No symptoms or risk factors identified. Fall Risk None identified. Assessment: 12:30 General: SEE TRIAGE NOTE. bp 13:57 Reassessment: PT TO CT WITH CONTAMINATED LAND CONSULTANT. bp 14:52 Neuro: Level of Consciousness is awake, alert, obeys commands, Oriented to person, aa5 place, time, situation. Respiratory: Airway is patent Respiratory effort is even, unlabored, Respiratory pattern is regular, symmetrical. Derm: Skin is dry, Skin is normal, Skin temperature is warm. Vital Signs: 12:19 BP 136 / 87; Pulse 83; Resp 16; Temp 98.1; Pulse Ox 98% on R/A; Weight 136.08 kg; hb Height 5 ft. 7 in. (170.18 cm); Pain 5/10; 12:19 Body Mass Index 46.99 (136.08 kg, 170.18 cm) hb ED Course: 12:06 Patient arrived in ED. ag5 12:21 Triage completed. hb 12:23 Arm band placed on. hb 12:30 Patient has correct armband on for positive identification. Bed in low position. Call bp light in reach. Side rails up X2. 13:15 Wojciech Malave MD is Attending Physician. rn 13:25 Blair Wynn, FRANCK is Primary Nurse. bp 13:47 Urine collected: clean catch specimen, cloudy. 3 13:50 Inserted saline lock: 20 gauge in right antecubital area, using aseptic technique. bp Blood collected. 14:23 CT Stone Protocol In Process Unspecified. EDMS 14:52 No provider procedures requiring assistance completed. IV discontinued, intact, aa5 bleeding controlled, No redness/swelling at site. Pressure dressing applied. Administered Medications: No medications were administered Outcome: 14:46 Discharge ordered by . rn 14:52 Discharged to home ambulatory. aa5 14:52 Condition: stable 14:52 Discharge instructions given to patient, Instructed on discharge instructions, follow up and referral plans. medication usage, Demonstrated understanding of instructions, follow-up care, medications, Prescriptions given X 1. 14:54 Patient left the ED. aa5 Addendum: 02/24/2020 07:50 Addendum: Culture Results: Positive urine culture. No further action required. Bacteria e b sensitive to prescribed antibiotic. Signatures: Dispatcher [employer] EDMS Wojciech Malave MD MD rn Calderon, Audri, RN RN aa5 Katlin Javier RN RN China Lee 3 Blair Wynn, RN RN bp Jessica Chase, Kaur 5
--- NOTE | 2020-02-26 12:18 | EDPHYS ---
Physician Documentation [facility] Name: Vesta Méndez Age: 69 yrs Sex: Female : 1950 Arrival Date: 02/19/2020 Time: 12:06 Bed 15 Private MD: ED Physician Wojciech Malave HPI: 02/18 13:49 This 69 yrs old Black Female presents to ER via Ambulatory with complaints of Left Side rn Pain. 13:49 The patient complains of pain in the left mid back. The pain does not radiate. Onset: rn The symptoms/episode began/occurred 3 hour(s) ago. Modifying factors: The symptoms are alleviated by nothing. the symptoms are aggravated by nothing. Severity of pain: At its worst the pain was moderate in the emergency department the pain has improved. The patient has not experienced similar symptoms in the past. The patient has not recently seen a physician. Denies trauma or fall, not worse with movement, no vomiting, reports waves of pain until just now when urinated, pain almost resolved. No fever. No diarrhea.. Historical: - Allergies: 12:22 Dilaudid; hb 12:22 Lisinopril; hb 12:22 Morphine; hb - PMHx: 12:22 Asthma; Diabetes - NIDDM; Hypertension; Atrial Fib; hb - PSHx: 12:22 Back; Hysterectomy; Lap Band; Lap Band Removal; hb 12:23 Hernia repair; hb - Immunization history:: Adult Immunizations up to date. - Social history:: Smoking status: Patient denies any tobacco usage or history of. - Family history:: not pertinent. - Hospitalizations: : No recent hospitalization is reported. ROS: 13:49 Constitutional: Negative for fever, chills, and weight loss, Cardiovascular: Negative rn for chest pain, palpitations, and edema, Respiratory: Negative for shortness of breath, cough, wheezing, and pleuritic chest pain, Abdomen/GI: Negative for abdominal pain, nausea, vomiting, diarrhea, and constipation, Back: + left flank pain : Negative for injury, bleeding, discharge, and swelling, MS/Extremity: Negative for injury and deformity, Skin: Negative for injury, rash, and discoloration, Neuro: Negative for headache, weakness, numbness, tingling, and seizure. Exam: 13:49 Constitutional: This is a well developed, well nourished patient who is awake, alert, rn and in no acute distress. Ambulatory to room and bathroom without assistance. Head/Face: Normocephalic, atraumatic. Chest/axilla: No rib tenderness Cardiovascular: Regular rate and rhythm. No pulse deficits. Respiratory: No increased work of breathing, no retractions or nasal flaring. Abdomen/GI: soft, non-tender, no masses Skin: Warm, dry MS/ Extremity: Pulses equal, no cyanosis. Neuro: Awake and alert, GCS 15, oriented to person, place, time, and situation. Motor strength 5/5 in all extremities. Sensory grossly intact. Cerebellar exam normal. Normal gait. Vital Signs: 12:19 BP 136 / 87; Pulse 83; Resp 16; Temp 98.1; Pulse Ox 98% on R/A; Weight 136.08 kg; hb Height 5 ft. 7 in. (170.18 cm); Pain 5/10; 12:19 Body Mass Index 46.99 (136.08 kg, 170.18 cm) hb MDM: 13:15 Patient medically screened. rn 14:45 Differential diagnosis: nephrolithiasis, UTI, muscle spasm, early shingles, gas, passed rn kidney stone, UTI. Data reviewed: vital signs, nurses notes, lab test result(s), radiologic studies, CT scan, and as a result, I will discharge patient. Counseling: I had a detailed discussion with the patient and/or guardian regarding: the historical points, exam findings, and any diagnostic results supporting the discharge/admit diagnosis, lab results, radiology results, the need for outpatient follow up, to return to the emergency department if symptoms worsen or persist or if there are any questions or concerns that arise at home. Response to treatment: the patient's condition has returned to base line, the patient is now symptom free, and as a result, I will discharge patient. Special discussion: I discussed with the patient/guardian in detail that at this point there is no indication for admission to the hospital. It is understood, however, that if the symptoms persist or worsen the patient needs to return immediately for re-evaluation. 02/18 13:41 Order name: Basic Metabolic Panel; Complete Time: 14:36 rn 02/18 13:41 Order name: CBC with Diff; Complete Time: 14:36 rn 02/18 13:41 Order name: Urine Microscopic Only rn 05/25 13:47 Order name: Urine Culture dh3 02/18 13:49 Order name: Urine Dipstick--Ancillary (enter results) eb 02/18 13:57 Order name: Urine Dipstick-Ancillary; Complete Time: 14:36 EDMS 02/18 13:41 Order name: IV Saline Lock; Complete Time: 13:55 rn 02/18 13:41 Order name: Labs collected and sent; Complete Time: 13:55 rn 02/18 13:41 Order name: Urine Dipstick-Ancillary (obtain specimen); Complete Time: 13:47 rn 02/18 13:41 Order name: CT Stone Protocol rn 02/18 14:04 Order name: Urine Microscopic Only EDMS Administered Medications: No medications were administered Disposition: 02/19/20 14:46 Discharged to Home. Impression: Urinary tract infection, site not specified. - Condition is Stable. - Discharge Instructions: Urinary Tract Infection, Adult. - Prescriptions for Macrobid 100 mg Oral Capsule - take 1 capsule by ORAL route every 12 hours for 7 days; 14 capsule. - Medication Reconciliation Form, Thank You Letter, Antibiotic Education, Prescription Opioid Use form. - Follow up: Private Physician; When: As needed; Reason: Recheck today's complaints, Re-evaluation by your physician. - Problem is new. - Symptoms have improved. Signatures: Dispatcher [employer] EDMS Wojciech Malave MD MD rn Calderon, Audri RN RN aa5 Katlin Javier RN RN Corrections: (The following items were deleted from the chart) 14:54 14:46 02/19/2020 14:46 Discharged to Home. Impression: Urinary tract infection, site aa5 not specified. Condition is Stable. Forms are Medication Reconciliation Form, Thank You Letter, Antibiotic Education, Prescription Opioid Use. Follow up: Private Physician; When: As needed; Reason: Recheck today's complaints, Re-evaluation by your physician. Problem is new. Symptoms have improved. rn
== END 2020-02-19 14:54 | disposition home or self-care (01) ==
LOC: ER 12:04
DX: N39.0 Urinary tract infection, site not specified (principal); I10 Essential (primary) hypertension; Z88.5 Allergy status to narcotic agent; Z88.8 Allergy status to other drugs, medicaments and biological substances
CPT/HCPCS: 36415; 74176; 76377; 80048; 81003; 81015; 85025; 87077; 87086; 87088; 87186; 99284